=== PATIENT | male | born 1955 | race Caucasian/White ===

== ENCOUNTER 2017-09-19 14:30 | Inpatient (IN) | payer MEDICARE ==
[~2017-09-19] VITALS: Ht 188 cm; Wt 182.8 kg
[~2017-09-19 14:30] MED LIST: AMLODIPINE BESYL5 MG PO; ATORVASTATIN CA80 MG PO; BACTRIM DS1 TAB PO; BUMEX1 M1 PO; BYDUREON2 MG SC; CEFTIN500 MG PO; CEPHALEXIN500 MG PO; CIPRO500 MG OR; CIPRO500 MG PO; CIPROFLOXACN500 MG PO; DIFLUCAN100 MG PO; DILAUDID 2MG2 MG/TA1 PO; EQ ASPIRIN325 MG OR; FERROUS SULF325 M2 PO; FLEXERIL PO; FLOMAX0.4 M1 PO; GLIMEPIRIDE4 MG PO; GLIPIZIDE10 M3 PO; GLIPIZIDE10 MG PO; GLIPIZIDE5 MG PO; HUMALOG PEN SC; HUMULIN R1 M1 SC; HUMULIN R1 ML IJ; IBUPROFEN600 MG PO; INSULIN SYR1 ML/31 G SC; ISOSORB MONO20 MG PO; K-DUR/KLOR-CON20 MEQ PO; KLOR-CON M2020 MEQ PO; LANTUS SC; LASIX 40 MG TAB40 MG OR; LASIX 40 MG TAB40 MG PO; LEVAQUIN500 MG OR; LEVEMIR FL100 UNIT/M SC; LEVEMIR SC; LEVEMIR1000 UNITS SC; LISINOPRIL20 MG OR; LISINOPRIL40 MG PO; LORTAB 5/3255 MG PO; LORTAB5 PO; LOSARTAN POT50 MG PO; LYRICA150 MG OR; LYRICA150 MG PO; LYRICA50 MG PO; MAG OXIDE400 MG PO; MELOXICAM15 MG PO; METFORMIN HCL1000 M1 PO; METFORMIN HCL1000 MG PO; METFORMIN1000 MG PO; METFORMIN500 MG PO; METOLAZONE2.5 MG PO; MYCOLOG CREAM15 GM EX; NITROSTAT0.4 MG SL; NORVASC5 M1 PO; NORVASC5 MG PO; NOVOLIN 70/30 SC; NOVOLIN R1000 UNITS SC; NOVOLIN SC; OMEGA 31000 MG PO; PERCOCET 5/321 COMBO PO; PLAVIX75 MG OR; PLAVIX75 MG PO; PROAIR HFA IN; QVAR40 MCG IN; QVAR80 MCG IN; SERTRALINE50 MG PO; SIMVASTATIN80 MG OR; SIMVASTATIN80 MG PO; TRANDATE200 MG PO; TYLENOL ARTH650 MG OR; ULTRAM50 M1 PO; VICTOZA18 MG/3 ML SC; VITAMIN D50000 UN1 PO; ZESTRIL/PRI20 MG/TAB PO; ZESTRIL20 MG OR; ZETIA10 MG PO; ZITHROMAX250 MG PO
[2017-09-19 16:45] LABS: URINE BILIRUBIN - DIPSTICK NEGATIVE (NEGATIVE); URINE BLOOD DIPSTICK SMALL (NEGATIVE); URINE CLARITY CLEAR; URINE COLOR YELLOW; URINE GLUCOSE - DIPSTICK NEGATIVE (NEGATIVE); URINE KETONE NEGATIVE (NEGATIVE); URINE LEUK ESTERASE NEGATIVE (NEGATIVE); URINE NITRITE - DIPSTICK NEGATIVE (Negative); URINE PROTEIN - DIPSTICK 30 mg/dL (NEG-TRACE); URINE SPECIFIC GRAVITY >=1.030; URINE UROBILINOGEN - DIPSTICK 0.2 E.U./dL (0.2)
[2017-09-19 16:54] LABS: URINE RBC 0-2 RBC/hpf (0-5); URINE SQUAMOUS EPITHELIAL CELL FEW EPI/hpf (0-FEW)
[2017-09-19 17:20] LABS: HEMATOCRIT 25.8 % (39.0-50.0); HEMOGLOBIN 7.9 g/dl (14.0-18.0); IMMATURE GRANULOCYTES 0.4 % (0.0-1.0); MEAN CELL VOLUME 86.3 fL CALC (80.0-100.0); MEAN CORPUSCULAR HGB 26.4 pG CALC (26.0-32.0); MEAN CORPUSCULAR HGB CONC 30.6 g/L CALC (32.0-36.0); NEUT# 3.85 thou/uL (1.82-7.42); RED BLOOD COUNT 2.99 mill/uL (4.70-6.10); RED CELL DISTRI WIDTH 18.2 % (11.5-15.5)
[2017-09-19 17:39] LABS: INTERNATIONAL NORMALIZED RATIO 1.2 RATIO (0.7-1.3); PROTHROMBIN TIME 13.4 SECONDS (9.0-12.5)
[2017-09-19 17:41] LABS: ALBUMIN 4.3 g/dL (3.2-5.0); BILIRUBIN, TOTAL 0.8 mg/dL (0.0-1.4); CALCIUM 9.3 mg/dL (8.4-10.2); CREATININE 1.9 mg/dL (0.7-1.3); TOTAL PROTEIN 7.5 g/dL (6.3-8.2)
[2017-09-19 18:12] LABS: TSH, 3RD GENERATION 1.96 uIU/mL (0.47 - 4.68)
[2017-09-20] VITALS (7 sets, daily range): BP systolic 120–153; BP diastolic 53–88
[2017-09-20 06:25] LABS: CALCIUM 9.3 mg/dL (8.4-10.2); CREATININE 1.7 mg/dL (0.7-1.3); MAGNESIUM 1.4 mg/dL (1.6-2.3); POTASSIUM 4.1 mmol/l (3.5-5.1)
[2017-09-20 07:35] LABS: HEMATOCRIT 25.2 % (39.0-50.0); HEMOGLOBIN 7.7 g/dl (14.0-18.0); MEAN CELL VOLUME 85.4 fL CALC (80.0-100.0); MEAN CORPUSCULAR HGB 26.1 pG CALC (26.0-32.0); MEAN CORPUSCULAR HGB CONC 30.6 g/L CALC (32.0-36.0); RED BLOOD COUNT 2.95 mill/uL (4.70-6.10)
[2017-09-20] MEDS ORDERED: ELIQUIS5 MG PO (14:09)
[2017-09-20] MEDS ORDERED: VENTOLIN HFA IN (16:33)
[2017-09-20] MEDS ORDERED: VITAMIN D32000 UNIT PO (16:38)
[2017-09-20] MEDS ORDERED: LANOXIN0.125 MG PO (16:39)
[2017-09-20] MEDS ORDERED: KLOR-CON M2020 MEQ PO (16:39)
[2017-09-20] MEDS ORDERED: MELOXICAM15 MG PO (16:40)
[2017-09-20] MEDS ORDERED: TIZANIDINE4 MG PO (16:40)
[2017-09-20] MEDS ORDERED: METOLAZONE2.5 MG PO (16:41)
[2017-09-20] MEDS ORDERED: BUMETANIDE1 MG PO (16:41)
[2017-09-20] MEDS ORDERED: LABETALOL100 MG PO (16:42)
[2017-09-20] MEDS ORDERED: ISOSORB MONO30 MG PO (16:42)
[2017-09-21 00:20] VITALS: BP 127/79
[2017-09-21 03:50] VITALS: BP 106/54
[2017-09-21 06:04] LABS: HEMATOCRIT 23.9 % (39.0-50.0); HEMOGLOBIN 7.3 g/dl (14.0-18.0); IMMATURE GRANULOCYTES 0.4 % (0.0-1.0); MEAN CELL VOLUME 85.7 fL CALC (80.0-100.0); MEAN CORPUSCULAR HGB 26.2 pG CALC (26.0-32.0); MEAN CORPUSCULAR HGB CONC 30.5 g/L CALC (32.0-36.0); NEUT# 3.35 thou/uL (1.82-7.42); RED BLOOD COUNT 2.79 mill/uL (4.70-6.10); RED CELL DISTRI WIDTH 17.9 % (11.5-15.5)
[2017-09-21 06:17] LABS: CALCIUM 9.3 mg/dL (8.4-10.2); CREATININE 1.5 mg/dL (0.7-1.3); MAGNESIUM 1.6 mg/dL (1.6-2.3); POTASSIUM 3.8 mmol/l (3.5-5.1)
[2017-09-21 08:30] VITALS: BP 160/50
[2017-09-21 15:45] VITALS: BP 115/68
[2017-09-21 18:24] LABS: URINE BILIRUBIN - DIPSTICK NEGATIVE (NEGATIVE); URINE BLOOD DIPSTICK NEGATIVE (NEGATIVE); URINE CLARITY CLEAR; URINE COLOR YELLOW; URINE GLUCOSE - DIPSTICK NEGATIVE (NEGATIVE); URINE KETONE NEGATIVE (NEGATIVE); URINE LEUK ESTERASE NEGATIVE (Negative); URINE NITRITE - DIPSTICK NEGATIVE (Negative); URINE PROTEIN - DIPSTICK NEGATIVE (NEG-TRACE); URINE SPECIFIC GRAVITY 1.015; URINE UROBILINOGEN - DIPSTICK 0.2 E.U./dL (0.2)
[2017-09-21 19:55] VITALS: BP 127/84; BP 89/56
[2017-09-22] VITALS (8 sets, daily range): BP systolic 95–137; BP diastolic 50–82
[2017-09-22 05:26] LABS: HEMATOCRIT 25.2 % (39.0-50.0); HEMOGLOBIN 7.7 g/dl (14.0-18.0); MEAN CELL VOLUME 86.6 fL CALC (80.0-100.0); MEAN CORPUSCULAR HGB 26.5 pG CALC (26.0-32.0); MEAN CORPUSCULAR HGB CONC 30.6 g/L CALC (32.0-36.0); RED BLOOD COUNT 2.91 mill/uL (4.70-6.10)
[2017-09-22 05:38] LABS: CALCIUM 9.6 mg/dL (8.4-10.2); CREATININE 1.5 mg/dL (0.7-1.3); MAGNESIUM 1.5 mg/dL (1.6-2.3); POTASSIUM 3.7 mmol/l (3.5-5.1)
[2017-09-23 00:25] VITALS: BP 129/61
[2017-09-23 04:55] VITALS: BP 114/71
[2017-09-23 05:54] LABS: ANION GAP 15 (6-22 (CALC)); BUN 38 mg/dL (9-20); BUN/CREATININE RATIO 27 (12-20 (CALC)); CALCIUM 9.4 mg/dL (8.4-10.2); CARBON DIOXIDE 32 mmol/l (22-30); CHLORIDE 100 mmol/l (95-108); CREATININE 1.4 mg/dL (0.7-1.3); GFR 52 ML/MIN (>=60 (CALC)); GFR FOR AFR.AMER. > 60 ML/MIN (>=60 (CALC)); GLUCOSE 114 mg/dL (75-110); MAGNESIUM 1.5 mg/dL (1.6-2.3); POTASSIUM 3.7 mmol/l (3.5-5.1); SODIUM 143 mmol/l (137-146)
[2017-09-23 05:55] LABS: HEMATOCRIT 25.3 % (39.0-50.0); HEMOGLOBIN 7.7 g/dl (14.0-18.0); MEAN CELL VOLUME 86.9 fL CALC (80.0-100.0); MEAN CORPUSCULAR HGB 26.5 pG CALC (26.0-32.0); MEAN CORPUSCULAR HGB CONC 30.4 g/L CALC (32.0-36.0); RED BLOOD COUNT 2.91 mill/uL (4.70-6.10); RED CELL DISTRI WIDTH 18.1 % (11.5-15.5)
[2017-09-23 07:30] VITALS: BP 110/57
[2017-09-23 10:20] VITALS: BP 113/54
[2017-09-23 16:33] VITALS: BP 136/77
[2017-09-23 18:00] VITALS: BP 140/86
[2017-09-24 00:01] VITALS: BP 107/57
[2017-09-24 06:16] LABS: ANION GAP 17 (6-22 (CALC)); BUN 35 mg/dL (9-20); BUN/CREATININE RATIO 28 (12-20 (CALC)); CALCIUM 9.8 mg/dL (8.4-10.2); CARBON DIOXIDE 32 mmol/l (22-30); CHLORIDE 96 mmol/l (95-108); CREATININE 1.3 mg/dL (0.7-1.3); GFR 56 ML/MIN (>=60 (CALC)); GFR FOR AFR.AMER. > 60 ML/MIN (>=60 (CALC)); GLUCOSE 116 mg/dL (75-110); MAGNESIUM 1.3 mg/dL (1.6-2.3); POTASSIUM 3.8 mmol/l (3.5-5.1); SODIUM 142 mmol/l (137-146)
[2017-09-24 06:28] VITALS: BP 123/77
[2017-09-24 08:00] VITALS: BP 147/80
[2017-09-24 11:00] VITALS: BP 125/59
[2017-09-24] MEDS ORDERED: ASPIRIN CHEWABL81 MG PO (14:07)
[2017-09-24] MEDS ORDERED: LOPRESSOR25 MG PO (14:07)
[2017-09-24] MEDS ORDERED: TRAMADOL HCL50 MG PO (14:07)
[2017-09-24] MEDS ORDERED: BUMETANIDE1 MG PO (14:07)
[2017-09-24] MEDS ORDERED: LYRICA150 MG PO (14:08)
== END 2017-09-24 16:02 | DRG 291 ==
LOC: ED 14:30 → ED-I 15:56 → ED 19:22 → MS2 19:23
PROVIDERS: Emergency Medicine; Internal Medicine; Nurse Practitioner Family; ADMIT Internal Medicine; ATTEND Internal Medicine
PROC: 5A09357 Assistance with Respiratory Ventilation, Less than 24 Consecutive Hours, Continuous Positive Airway Pressure (ICD-10-PCS; principal; 2017-09-21)
DX: I13.0 Hypertensive heart and chronic kidney disease with heart failure and stage 1 through stage 4 chronic kidney disease, or unspecified chronic kidney disease (principal); I50.23 Acute on chronic systolic (congestive) heart failure; E11.22 Type 2 diabetes mellitus with diabetic chronic kidney disease; E11.40 Type 2 diabetes mellitus with diabetic neuropathy, unspecified; N17.9 Acute kidney failure, unspecified; N18.3 Chronic kidney disease, stage 3 (moderate); Z68.43 Body mass index [BMI] 50.0-59.9, adult; E11.69 Type 2 diabetes mellitus with other specified complication; E78.5 Hyperlipidemia, unspecified; I48.2 Chronic atrial fibrillation; M19.90 Unspecified osteoarthritis, unspecified site; J45.909 Unspecified asthma, uncomplicated; I25.10 Atherosclerotic heart disease of native coronary artery without angina pectoris; D50.9 Iron deficiency anemia, unspecified; D63.1 Anemia in chronic kidney disease; K21.9 Gastro-esophageal reflux disease without esophagitis; R31.9 Hematuria, unspecified; G47.33 Obstructive sleep apnea (adult) (pediatric); E83.42 Hypomagnesemia; E66.01 Morbid (severe) obesity due to excess calories; Z79.01 Long term (current) use of anticoagulants; Z86.73 Personal history of transient ischemic attack (TIA), and cerebral infarction without residual deficits; Z98.84 Bariatric surgery status; Z79.4 Long term (current) use of insulin; Z86.718 Personal history of other venous thrombosis and embolism; Z86.711 Personal history of pulmonary embolism
CPT/HCPCS: J1756; J3475

== ENCOUNTER → 2019-01-29 | Outpatient (REF) | payer MEDICARE, MEDICAID ==
[~2019-01-29] MED LIST changes: +ASPIRIN CHEWABL81 MG PO; +BUMETANIDE1 MG PO; +ELIQUIS5 MG PO; +ISOSORB MONO30 MG PO; +LABETALOL100 MG PO; +LANOXIN0.125 MG PO; +LOPRESSOR25 MG PO; +TIZANIDINE4 MG PO; +TRAMADOL HCL50 MG PO; +VENTOLIN HFA IN; +VITAMIN D32000 UNIT PO
[2019-01-29 12:12] LABS: URINE BILIRUBIN - DIPSTICK NEGATIVE (NEGATIVE); URINE BLOOD DIPSTICK TRACE-INTACT (NEGATIVE); URINE COLOR YELLOW; URINE GLUCOSE - DIPSTICK NEGATIVE (NEGATIVE); URINE KETONE NEGATIVE (NEGATIVE); URINE LEUK ESTERASE NEGATIVE (Negative); URINE NITRITE - DIPSTICK NEGATIVE (Negative); URINE PH 5.5 (4.5-8.0); URINE PROTEIN - DIPSTICK NEGATIVE (NEG-TRACE); URINE SPECIFIC GRAVITY >=1.030; URINE UROBILINOGEN - DIPSTICK 0.2 E.U./dL (0.2)
[2019-01-29 12:16] LABS: URINE CLARITY CLEAR
[2019-01-29 12:24] LABS: HEMATOCRIT 34.8 % (39.0-50.0); IMMATURE GRANULOCYTES 1.5 % (0.0-5.0); MEAN CELL VOLUME 85.1 fL CALC (80.0-100.0); MEAN CORPUSCULAR HGB 26.9 pG CALC (26.0-32.0); MEAN CORPUSCULAR HGB CONC 31.6 g/L CALC (32.0-36.0); NEUT# 3.48 thou/uL (1.82-7.42); RED BLOOD COUNT 4.09 mill/uL (4.70-6.10); RED CELL DISTRI WIDTH 15.5 % (11.5-15.5)
[2019-01-29 12:51] LABS: ALKALINE PHOSPHATASE 95 u/l (38-126); BILIRUBIN, TOTAL 0.5 mg/dL (0.0-1.4); BUN 18 mg/dL (8-23); BUN/CREATININE RATIO 16 (12-20 (CALC)); CARBON DIOXIDE 24 mmol/l (22-30); CHLORIDE 105 mmol/l (95-108); CHOLESTEROL HDL RATIO 2.1 (<4.4 (CALC)); CREATININE 1.2 mg/dL (0.7-1.3); GFR > 60 ML/MIN (>=60 (CALC)); GFR FOR AFR.AMER. > 60 ML/MIN (>=60 (CALC)); HDL CHOLESTEROL 29 mg/dL (>=40); POTASSIUM 4.3 mmol/l (3.5-5.1); SGOT/AST 26 u/l (19-48); TOTAL PROTEIN 7.1 g/dL (6.3-8.2); TOTAL TRIGLYCERIDES 124 mg/dl (30-149); VLDL CHOLESTROL 25 mg/dl (4-45 (CALC))
[2019-01-29 12:53] LABS: ANION GAP 17 (6-22 (CALC)); CALCULATED LDLCHOLESTEROL 7 mg/dL (62-129 (CALC)); SODIUM 142 mmol/l (137-146); TOTAL CHOLESTEROL 61 mg/dl (0-199)
== END | disposition home or self-care (01) ==
LOC: LAB 10:31
PROVIDERS: ATTEND Nurse Practitioner
DX: E11.9 Type 2 diabetes mellitus without complications (principal); I10 Essential (primary) hypertension; R10.11 Right upper quadrant pain

== ENCOUNTER 2019-05-02 14:36 | Inpatient (IN) | payer MEDICARE, OTHER ==
[~2019-05-02] VITALS: Ht 188 cm; Wt 176.2 kg
[2019-05-02] MEDS ORDERED: SPIRONOLACTONE25 MG PO (15:05)
[2019-05-02] MEDS ORDERED: MELOXICAM7.5 MG PO (15:21)
[2019-05-02] MEDS ORDERED: NOVOLOG MIX100 U/ML SC (15:22)
[2019-05-02] MEDS ORDERED: TRESIBA FL200 UNIT/M (15:23)
[2019-05-02] MEDS ORDERED: METOPROL TAR25 MG PO (15:24)
[2019-05-02] MEDS ORDERED: VENTOLIN HFA IN (15:25)
[2019-05-02] MEDS ORDERED: VITAMIN D32000 UNI1 PO (15:27)
[2019-05-02] MEDS ORDERED: METOLAZONE2.5 MG PO (15:29)
[2019-05-02] MEDS ORDERED: OZEMPIC2 MG/1.51 SC (15:29)
[2019-05-02 15:38] LABS: HEMATOCRIT 32.7 % (39.0-50.0); HEMOGLOBIN 10.6 g/dl (14.0-18.0); IMMATURE GRANULOCYTES 0.9 % (0.0-5.0); MEAN CELL VOLUME 83.4 fL CALC (80.0-100.0); MEAN CORPUSCULAR HGB CONC 32.4 g/L CALC (32.0-36.0); NEUT# 4.01 thou/uL (1.82-7.42); RED BLOOD COUNT 3.92 mill/uL (4.70-6.10); RED CELL DISTRI WIDTH 14.9 % (11.5-15.5)
[2019-05-02 16:00] LABS: ALBUMIN 4.1 g/dL (3.2-5.0); BILIRUBIN, TOTAL 0.6 mg/dL (0.0-1.4); CREATININE 1.5 mg/dL (0.7-1.3); POTASSIUM 4.7 mmol/l (3.5-5.1); TOTAL PROTEIN 7.2 g/dL (6.3-8.2)
[2019-05-02 21:48] VITALS: BP 134/61
[2019-05-02 21:56] LABS: URINE BILIRUBIN - DIPSTICK NEGATIVE (NEGATIVE); URINE BLOOD DIPSTICK LARGE (NEGATIVE); URINE GLUCOSE - DIPSTICK >=1000 mg/dL (NEGATIVE); URINE KETONE NEGATIVE (NEGATIVE); URINE LEUK ESTERASE NEGATIVE (NEGATIVE); URINE NITRITE - DIPSTICK NEGATIVE (Negative); URINE PH 5.5 (4.5-8.0); URINE PROTEIN - DIPSTICK NEGATIVE (NEG-TRACE); URINE SPECIFIC GRAVITY <=1.005; URINE UROBILINOGEN - DIPSTICK 0.2 E.U./dL (0.2)
[2019-05-02 21:57] LABS: URINE COLOR STRAW
[2019-05-03 00:19] VITALS: BP 132/70
[2019-05-03 04:25] VITALS: BP 110/57
[2019-05-03 08:05] VITALS: BP 149/76
[2019-05-03 10:19] VITALS: BP 133/61
[2019-05-03 10:24] LABS: HEMATOCRIT 32.6 % (39.0-50.0); HEMOGLOBIN 10.3 g/dl (14.0-18.0); IMMATURE GRANULOCYTES 0.6 % (0.0-5.0); MEAN CELL VOLUME 84.9 fL CALC (80.0-100.0); MEAN CORPUSCULAR HGB 26.8 pG CALC (26.0-32.0); MEAN CORPUSCULAR HGB CONC 31.6 g/L CALC (32.0-36.0); NEUT# 4.45 thou/uL (1.82-7.42); RED BLOOD COUNT 3.84 mill/uL (4.70-6.10); RED CELL DISTRI WIDTH 14.9 % (11.5-15.5)
[2019-05-03 10:36] LABS: ALBUMIN 3.7 g/dL (3.2-5.0); ALKALINE PHOSPHATASE 78 u/l (38-126); ANION GAP 17 (6-22 (CALC)); BILIRUBIN, TOTAL 0.7 mg/dL (0.0-1.4); BUN 33 mg/dL (8-23); BUN/CREATININE RATIO 26 (12-20 (CALC)); CARBON DIOXIDE 28 mmol/l (22-30); CHLORIDE 96 mmol/l (95-108); CREATININE 1.3 mg/dL (0.7-1.3); GFR 56 ML/MIN (>=60 (CALC)); GFR FOR AFR.AMER. > 60 ML/MIN (>=60 (CALC)); POTASSIUM 4.4 mmol/l (3.5-5.1); SGOT/AST 29 u/l (19-48); SODIUM 136 mmol/l (137-146); TOTAL PROTEIN 6.7 g/dL (6.3-8.2)
[2019-05-03 15:30] VITALS: BP 135/79
[2019-05-03 19:14] VITALS: BP 124/61
[2019-05-04 00:23] VITALS: BP 159/90
[2019-05-04 04:00] VITALS: BP 124/69
[2019-05-04 05:06] LABS: HEMATOCRIT 36.6 % (39.0-50.0); HEMOGLOBIN 11.8 g/dl (14.0-18.0); IMMATURE GRANULOCYTES 0.7 % (0.0-5.0); MEAN CELL VOLUME 83.8 fL CALC (80.0-100.0); MEAN CORPUSCULAR HGB CONC 32.2 g/L CALC (32.0-36.0); NEUT# 7.09 thou/uL (1.82-7.42); RED BLOOD COUNT 4.37 mill/uL (4.70-6.10); RED CELL DISTRI WIDTH 14.7 % (11.5-15.5)
[2019-05-04 05:21] LABS: ANION GAP 20 (6-22 (CALC)); BUN 34 mg/dL (8-23); BUN/CREATININE RATIO 30 (12-20 (CALC)); CARBON DIOXIDE 27 mmol/l (22-30); CHLORIDE 95 mmol/l (95-108); CREATININE 1.1 mg/dL (0.7-1.3); GFR > 60 ML/MIN (>=60 (CALC)); GFR FOR AFR.AMER. > 60 ML/MIN (>=60 (CALC)); POTASSIUM 4.9 mmol/l (3.5-5.1); SODIUM 137 mmol/l (137-146)
[2019-05-04 08:18] VITALS: BP 124/67
[2019-05-04 10:56] VITALS: BP 115/69
[2019-05-04 15:08] VITALS: BP 108/49
[2019-05-04 19:13] VITALS: BP 131/67
[2019-05-05] VITALS (8 sets, daily range): BP systolic 100–131; BP diastolic 42–71
[2019-05-05 04:29] LABS: HEMATOCRIT 35.3 % (39.0-50.0); HEMOGLOBIN 11.5 g/dl (14.0-18.0); IMMATURE GRANULOCYTES 0.3 % (0.0-5.0); MEAN CELL VOLUME 83.8 fL CALC (80.0-100.0); MEAN CORPUSCULAR HGB 27.3 pG CALC (26.0-32.0); MEAN CORPUSCULAR HGB CONC 32.6 g/L CALC (32.0-36.0); NEUT# 4.41 thou/uL (1.82-7.42); RED BLOOD COUNT 4.21 mill/uL (4.70-6.10); RED CELL DISTRI WIDTH 14.8 % (11.5-15.5)
[2019-05-05 04:44] LABS: ANION GAP 16 (6-22 (CALC)); BUN 35 mg/dL (8-23); BUN/CREATININE RATIO 32 (12-20 (CALC)); CARBON DIOXIDE 30 mmol/l (22-30); CHLORIDE 94 mmol/l (95-108); CREATININE 1.1 mg/dL (0.7-1.3); GFR > 60 ML/MIN (>=60 (CALC)); GFR FOR AFR.AMER. > 60 ML/MIN (>=60 (CALC)); POTASSIUM 4.1 mmol/l (3.5-5.1); SODIUM 136 mmol/l (137-146)
[2019-05-05 04:55] LABS: MAGNESIUM 1.5 mg/dL (1.6-2.3)
[2019-05-06 00:15] VITALS: BP 127/80
[2019-05-06 04:15] VITALS: BP 110/64
[2019-05-06 09:07] VITALS: BP 117/65; BP 95/65
[2019-05-06 11:05] VITALS: BP 111/71
[2019-05-06 15:30] VITALS: BP 115/63
[2019-05-06 19:15] VITALS: BP 112/72
[2019-05-07 00:19] VITALS: BP 107/54
[2019-05-07 04:37] VITALS: BP 108/67
[2019-05-07 05:48] LABS: HEMOGLOBIN 11.8 g/dl (14.0-18.0); IMMATURE GRANULOCYTES 0.7 % (0.0-5.0); MEAN CELL VOLUME 83.1 fL CALC (80.0-100.0); MEAN CORPUSCULAR HGB 27.3 pG CALC (26.0-32.0); MEAN CORPUSCULAR HGB CONC 32.8 g/L CALC (32.0-36.0); NEUT# 3.78 thou/uL (1.82-7.42); RED BLOOD COUNT 4.33 mill/uL (4.70-6.10); RED CELL DISTRI WIDTH 14.5 % (11.5-15.5)
[2019-05-07 06:08] LABS: ALBUMIN 3.8 g/dL (3.2-5.0); ALKALINE PHOSPHATASE 98 u/l (38-126); ANION GAP 17 (6-22 (CALC)); BILIRUBIN, TOTAL 0.9 mg/dL (0.0-1.4); BUN 37 mg/dL (8-23); BUN/CREATININE RATIO 28 (12-20 (CALC)); CARBON DIOXIDE 30 mmol/l (22-30); CHLORIDE 91 mmol/l (95-108); CREATININE 1.3 mg/dL (0.7-1.3); GFR 56 ML/MIN (>=60 (CALC)); GFR FOR AFR.AMER. > 60 ML/MIN (>=60 (CALC)); MAGNESIUM 1.4 mg/dL (1.6-2.3); POTASSIUM 4.2 mmol/l (3.5-5.1); SGOT/AST 39 u/l (19-48); SODIUM 134 mmol/l (137-146); TOTAL PROTEIN 6.8 g/dL (6.3-8.2)
[2019-05-07 07:48] VITALS: BP 115/82
[2019-05-07 11:20] VITALS: BP 152/90
== END 2019-05-07 14:48 | disposition home or self-care (01) | DRG 291 ==
LOC: ED 14:36 → ED-I 17:49 → ED 18:09 → MS2 18:10
PROVIDERS: Emergency Medicine; Internal Medicine Nephrology; Nurse Practitioner Family; ADMIT Internal Medicine; ATTEND Internal Medicine
DX: I13.0 Hypertensive heart and chronic kidney disease with heart failure and stage 1 through stage 4 chronic kidney disease, or unspecified chronic kidney disease (principal); I50.23 Acute on chronic systolic (congestive) heart failure; Z68.43 Body mass index [BMI] 50.0-59.9, adult; E11.22 Type 2 diabetes mellitus with diabetic chronic kidney disease; N18.3 Chronic kidney disease, stage 3 (moderate); E11.21 Type 2 diabetes mellitus with diabetic nephropathy; E11.65 Type 2 diabetes mellitus with hyperglycemia; J43.9 Emphysema, unspecified; J20.9 Acute bronchitis, unspecified; I25.10 Atherosclerotic heart disease of native coronary artery without angina pectoris; E66.01 Morbid (severe) obesity due to excess calories; E11.40 Type 2 diabetes mellitus with diabetic neuropathy, unspecified; K21.9 Gastro-esophageal reflux disease without esophagitis; G47.33 Obstructive sleep apnea (adult) (pediatric); D63.1 Anemia in chronic kidney disease; M19.90 Unspecified osteoarthritis, unspecified site; E78.5 Hyperlipidemia, unspecified; I48.2 Chronic atrial fibrillation; I27.20 Pulmonary hypertension, unspecified; I08.1 Rheumatic disorders of both mitral and tricuspid valves; E83.42 Hypomagnesemia; T50.2X5A Adverse effect of carbonic-anhydrase inhibitors, benzothiadiazides and other diuretics, initial encounter; Z79.4 Long term (current) use of insulin; Z91.11 Patient's noncompliance with dietary regimen; Z98.84 Bariatric surgery status; Z86.73 Personal history of transient ischemic attack (TIA), and cerebral infarction without residual deficits
CPT/HCPCS: J3475

== ENCOUNTER 2020-01-28 11:21 | Inpatient (IN) | payer MEDICARE, MEDICAID ==
[~2020-01-28] VITALS: Ht 188 cm; Wt 171.0 kg
[~2020-01-28 11:21] MED LIST changes: +MELOXICAM7.5 MG PO; +METOPROL TAR25 MG PO; +NOVOLOG MIX100 U/ML SC; +OZEMPIC2 MG/1.51 SC; +SPIRONOLACTONE25 MG PO; +TRESIBA FL200 UNIT/M SC; +VITAMIN D32000 UNI1 PO
--- NOTE | 2020-01-28 11:36 | NUR ---
PT RETURNED TO WAITING ROOM VIA WC- AWAITING ROOM AVAIALIBILITY
--- NOTE | 2020-01-28 13:44 | NUR ---
PT TO ROOM VIA WC
[2020-01-28 14:29] LABS: HEMATOCRIT 34.9 % (39.0-50.0); HEMOGLOBIN 11.4 g/dl (14.0-18.0); IMMATURE GRANULOCYTES 0.8 % (0.0-5.0); MEAN CELL VOLUME 85.1 fL CALC (80.0-100.0); MEAN CORPUSCULAR HGB 27.8 pG CALC (26.0-32.0); MEAN CORPUSCULAR HGB CONC 32.7 g/L CALC (32.0-36.0); NEUT# 2.46 thou/uL (1.82-7.42); RED BLOOD COUNT 4.1 mill/uL (4.70-6.10); RED CELL DISTRI WIDTH 15.3 % (11.5-15.5)
--- NOTE | 2020-01-28 14:30 | NUR ---
PT RESTING ON STRETCHER; NO S/S OF DISTRESS NOTED; MONITORING DEVICES IN PLACE; VSS; PT ADVISED OF POC AND CONTINUED WAIT TIME; CALL LIGHT WITHIN REACH; WILL CONTINUE TO MONITOR
[2020-01-28 14:47] LABS: ALBUMIN 3.9 g/dL (3.2-5.0); ALKALINE PHOSPHATASE 176 u/l (38-126); ANION GAP 17 (6-22 (CALC)); BILIRUBIN, TOTAL 0.4 mg/dL (0.0-1.4); BUN 42 mg/dL (8-23); BUN/CREATININE RATIO 29 (12-20 (CALC)); CARBON DIOXIDE 22 mmol/l (22-30); CHLORIDE 98 mmol/l (95-108); CREATININE 1.5 mg/dL (0.7-1.3); GFR 47 ML/MIN (>=60 (CALC)); GFR FOR AFR.AMER. 57 ML/MIN (>=60 (CALC)); POTASSIUM 4.3 mmol/l (3.5-5.1); SGOT/AST 31 u/l (19-48); SODIUM 133 mmol/l (137-146); TOTAL PROTEIN 7.1 g/dL (6.3-8.2)
--- NOTE | 2020-01-28 15:30 | NUR ---
REPORT TO ANNELIESE WARREN
--- NOTE | 2020-01-28 16:30 | NUR ---
PT RESTING ON STRETHER, NO COMPLAINTS STATED AT THIS TIME
--- NOTE | 2020-01-28 17:17 | NUR ---
REPORT CALLED TO CHRISTOPHER- [facility] COY ACCEPTED PT
--- NOTE | 2020-01-28 17:25 | NUR ---
Admission Note Report Given to: WES RN Transported by: Wheelchair X Stretcher Transported with: X Nurse Transporter X Patent IV O2 X Bleacher [employer] Location: ICU X MS2 TRANSPORTED TO [facility] [place] WITHOUT [place]
[2020-01-28 17:32] VITALS: BP 135/72
--- NOTE | 2020-01-28 17:32 | NUR ---
PT ARRIVED TO THE FLOOR VIA STRETCHER ACCOMPANIED BY ED STAFF. PT AMBULATED FROM STRETCHER TO BED. RESPIRATIONS EVEN AND UNLABORED. LUNGS SOUND CLEAR DIMINISHED. PEDAL PULSES STRONG. #20 RAC PATENT AND APPEARS HEALTHY. PT ORIENTED TO ROOM AND CALL ANDRADE SYSTEM. SAFETY PRECAUTIONS IN PLACE. WILL CONTINUE TO MONITOR.
--- NOTE | 2020-01-28 18:33 | NUR ---
LAB CALLED WITH CRITICAL GLUCOSE OF MD Zurdo AWARE.
[2020-01-28 19:07] VITALS: BP 156/87
--- NOTE | 2020-01-28 20:30 | NUR ---
PATIENT RESTING IN BED AT THIS TIME-AWAKE ALERT AND ORIENTEDX3. PATIENT WITH TELE MONITOR IN PLACE. IVF NS PATENT AND INFUSING AT 100CC/HR VIA RIGHT AC SITE. VOIDING QS CLEAR YELLOW URINE. STATES NO FEELING WELL AND THINKS HE MAY HAVE SINUS INFECTION-USES C-PAP AT HS AND STATES THE MASK HASN'T BEEN CLEANED IN A LONG TIME AND IT IS BROKEN. PROBLEM WITH SUPPLIER FOR NEW MASK. STATES NASAL CANGESTION, NON-PRODUCTION COUGH. RECIEVED CALL FROM ELTON IN LAB-LACTIC ACID 2.2 AND [id number]. DR. POZO CALLED. NEXT LATIC AT 0130. NO NEW CHANGES IN INSULIN ORDERS THAT IS ALREADY ORDERED. PATIENT NOTIFIED AND MEDICATED ORDERED,SAFETY PREAUTIONS REINFORCED. CALL LIGHT IN REACH. WILL CONT TO MONITOR.
--- NOTE | 2020-01-28 20:30 | NUR ---
PATIENT RESTING IN BED AT THIS TIME-AWAKE ALERT AND ORIENTEDX3. PATIENT WITH LACTIC ACID 2.2 AND CRITICALLY HIGH ACCU-CHECK. DR. POZO NOTIFIED OF ABNORMAL LABS. ORDERS RECIEVED. IVF PATENT AND INFUSING VIA RIGHT AC SITE AT 100CC/HR ORDERED. TELE MONITOR IN PLACE. VOIDING QS CLEAR YELLOW URINE. PATIENT STATES THAT HE IS NOT FEELING WELL. THINKS THAT HE MAY HAVE SINUS INFECTION-STATES THAT HE USES C-PAP AT NIGHT AND MASK IS BROKEN AND HAS NOT BEEN CLEANED IN SOME TIME.
--- NOTE | 2020-01-28 23:34 | NUR ---
ACCU-CHECK DONE AND READING HIGH-STAT LAB DRAW ORDERED AND AWAITING RESULTS. WILL CONT TO MONITOR.
--- NOTE | 2020-01-29 | NUR ---
RECEIVED CALL FROM PAUL IN LAB-CRITICAL [id number]. POZO NOTIFIED AND NEW ORDER RECIEVED. NOVALOG 15UNITS OF NOVALOG SQ GIVEN. PATIENT CONT TO VOID QS CLEAR YELLOW URINE. IVF PATENT AND INFUSING AT 100CC/HR. TELE MONITOR IN PLACE. CALL LIGHT IN REACH. WILL CONT TO MONITOR.
--- NOTE | 2020-01-29 02:15 | NUR ---
CALL FROM PAUL IN LAB. LACTIC ACID-2.3. WILL REPEAT WITH MORNING LABS. PATIENT APPEARS SLEEPING AT THIS TIME WITH HOME C-PAP IN PLACE. CALL LIGHT IN REACH. WILL CONT TO MARY ELLEN.
[2020-01-29 04:00] VITALS: BP 133/82
--- NOTE | 2020-01-29 04:00 | NUR ---
PATIENT APPEARS SLEEPING AT THIS TIME WITH HOB ELEVATED AND HOME C-PAP IN PLACE. TELE MONITOR IN PLACE. IVF PATENT AND INFUSING VIA RIGHT AC SITE. CALL LIGHT IN REACH, WILL CONT TO MONITOR.
[2020-01-29 05:15] LABS: MEAN CELL VOLUME 83.5 fL CALC (80.0-100.0); MEAN CORPUSCULAR HGB 27.8 pG CALC (26.0-32.0); MEAN CORPUSCULAR HGB CONC 33.3 g/L CALC (32.0-36.0); RED BLOOD COUNT 3.95 mill/uL (4.70-6.10); RED CELL DISTRI WIDTH 14.8 % (11.5-15.5)
[2020-01-29 05:46] LABS: ANION GAP 16 (6-22 (CALC)); BUN 38 mg/dL (8-23); BUN/CREATININE RATIO 31 (12-20 (CALC)); CARBON DIOXIDE 18 mmol/l (22-30); CHLORIDE 102 mmol/l (95-108); CREATININE 1.2 mg/dL (0.7-1.3); GFR > 60 ML/MIN (>=60 (CALC)); GFR FOR AFR.AMER. > 60 ML/MIN (>=60 (CALC)); MAGNESIUM 1.1 mg/dL (1.6-2.3); POTASSIUM 4.5 mmol/l (3.5-5.1); SODIUM 132 mmol/l (137-146)
--- NOTE | 2020-01-29 06:23 | NUR ---
CRITICAL LAB VALUES CALLED BY PAUL IN LAB. LACTIC ACID 2.6, GLUCOSE 416. NEW ORDERED RECIEVED. INCREASE IVF TO 150CC/HR WITH 250CC BOLUS OVER 30MIN. GIVE NOVALOG 15UNITS SQ WHEN PROFILED ON EMAR. WILL CONT TO MONITOR.
--- NOTE | 2020-01-29 07:05 | NUR ---
REPORT RECEIVED FROM ANNELIESE FAYE;PT APPEARS TO BE SLEEPING IN SEMI FOWLERS POSITION;NO S/S OF DISTRESS NOTED;RESPIRATIONS APPEAR EVEN AND UNLABORED ON RA;TELE MONITORING IN PLACE;IV FLUIDS INFUSING WITH EASE PER ORDER;ALL SAFETY PRECAUTIONS IN PLACE WITH BED IN THE LOWEST POSITION AND CALL LIGHT IN REACH;WILL CONTINUE TO MONITOR
--- NOTE | 2020-01-29 09:45 | NUR ---
PT RESTING IN SEMI FOWLERS POSITION,A&O X3;VS OBTAINED AND ASSESSMENT COMPLETED;PT DENIES ANY CURRENT PAIN OR DISCOMFORTS,PAIN SCALE AND REPORTING EDUCATED;RESPIRATIONS EVEN AND UNLABORED ON RA,NON-PRODUCTIVE COUGH NOTED AT TIMES;ABDOMEN DISTENDED/SOFT ON PALPATION AND ACTIVE IN ALL 4 QUADRANTS;WEAK PEDAL PULSES WITH +2 EDEMA NOTED,ENCOURAGED ELEVATION;#20G TO RAC INFUSING NS @ 150ML/HR,SITE APPEARS HEALTHY;SKIN INTACT;TELE MONITORING IN PLACE;PT DENIES ANY ADDITIONAL NEEDS AT THIS TIME AND IS ENCOURAGED TO CALL FOR ASSISTANCE IF NEEDED;CALL LIGHT IN REACH;WILL CONTINUE TO MONITOR
[2020-01-29 09:46] VITALS: BP 141/71
--- NOTE | 2020-01-29 11:44 | NUR ---
AT BEDSIDE DISCUSSING POC.
--- NOTE | 2020-01-29 11:50 | NUR ---
PT RESTING IN SEMI FOWLERS POSITION;RESPIRATIONS REMAIN EVEN AND UNLABORED ON RA;PT DENIES ANY CURRENT PAIN OR DISCOMFORTS;TELE MONITORING IN PLACE;IV SITE PATENT INFUSING MAG WITH EASE PER ORDER;ACCUCHECK 372, PT COVERED WITH SLIDING SCALE NOVOLOG PER ORDER;ASSESSMENT REMAINS UNCHANGED AT THIS TIME;ENCOURAGED TO CALL FOR ASSISTANCE IF NEEDED;CALL LIGHT IN REACH;WILL CONTINUE TO MONITOR
[2020-01-29 12:42] LABS: URINE BILIRUBIN - DIPSTICK NEGATIVE (NEGATIVE); URINE BLOOD DIPSTICK NEGATIVE (NEGATIVE); URINE COLOR YELLOW; URINE GLUCOSE - DIPSTICK >=1000 mg/dL (NEGATIVE); URINE KETONE NEGATIVE (NEGATIVE); URINE LEUK ESTERASE NEGATIVE (NEGATIVE); URINE NITRITE - DIPSTICK NEGATIVE (Negative); URINE PH 5.5 (4.5-8.0); URINE PROTEIN - DIPSTICK NEGATIVE (NEG-TRACE); URINE UROBILINOGEN - DIPSTICK 0.2 E.U./dL (0.2)
[2020-01-29] MEDS ORDERED: METOLAZONE5 MG PO (13:06)
--- NOTE | 2020-01-29 13:52 | NUR ---
CALL RECEIVED FROM ER REGARDING PT ELEVATED HR.PT ASYMPTOMATIC AT THIS TIME.BP 116/69, HR 75;WILL CONTINUE TO MONITOR
[2020-01-29 13:53] VITALS: BP 116/69
[2020-01-29 15:26] VITALS: BP 142/83
--- NOTE | 2020-01-29 15:50 | NUR ---
PT RESTING IN SEMI FOWLERS POSITION;RESPIRATIONS EVEN AND UNLABORED ON RA;PT DENIES ANY CURRENT PAIN OR NEEDS;TELE MONITORING IN PLACE;IV SITE PATENT;PT ENCOURAGED TO CALL FOR ASSISTANCE IF NEEDED;FALL PRECAUTIONS IN PLACE WITH ILIR LIGHT IN REACH;WILL CONTINUE TO MONITOR
--- NOTE | 2020-01-29 16:20 | NUR ---
BLADDER SCAN OBTAINED FOR POST VOID RESIDUAL RESULTING IN 74CC.
--- NOTE | 2020-01-29 19:03 | NUR ---
REPORT RECEIVED FROM RAYNE VILLA. PT RESTING IN BED. NO S/S OF DISTRESS AT THIS TIME. SAFETY PRECAUTIONS IN [place]. WILL CONTINEU TO MONITOR.
[2020-01-29 19:05] VITALS: BP 136/65
--- NOTE | 2020-01-29 21:30 | NUR ---
PT RESTING IN BED, ALERT AND ORIENTED. RESPIRATIONS EVEN AND UNLABORED ON RA. LUNGS SOUND CLEAR DIMINISHED. PEDAL PULSE STRONG. PT DENIES ANY PAIN OR DISCOMFORT AT THIS TIME. SAFETY PRECAUTIONS IN PLACE. WILL CONTINUE TO MONITOR.
[2020-01-30] VITALS (7 sets, daily range): BP systolic 98–151; BP diastolic 53–81
--- NOTE | 2020-01-30 00:23 | NUR ---
PT RESTING IN BED RESPIRATIONS EVEN AND UNLABORED CPAP IN PLACE. CALL ANDRADE WITHIN REACH WILL CONTINUE TO MONITOR.
--- NOTE | 2020-01-30 04:12 | NUR ---
PT RESTING IN BED. NO S/S OF DISTRESS AT THIS TIME. WILL CONTINUE TO MONITOR.
[2020-01-30 05:22] LABS: HEMATOCRIT 36.5 % (39.0-50.0); MEAN CELL VOLUME 85.3 fL CALC (80.0-100.0); MEAN CORPUSCULAR HGB CONC 32.9 g/L CALC (32.0-36.0); RED BLOOD COUNT 4.28 mill/uL (4.70-6.10); RED CELL DISTRI WIDTH 15.4 % (11.5-15.5)
[2020-01-30 05:43] LABS: BUN 35 mg/dL (8-23); BUN/CREATININE RATIO 31 (12-20 (CALC)); CHLORIDE 99 mmol/l (95-108); CREATININE 1.1 mg/dL (0.7-1.3); GFR > 60 ML/MIN (>=60 (CALC)); GFR FOR AFR.AMER. > 60 ML/MIN (>=60 (CALC)); POTASSIUM 4.2 mmol/l (3.5-5.1); SODIUM 135 mmol/l (137-146)
[2020-01-30 05:45] LABS: ANION GAP 15 (6-22 (CALC)); CARBON DIOXIDE 25 mmol/l (22-30); MAGNESIUM 1.7 mg/dL (1.6-2.3)
--- NOTE | 2020-01-30 07:30 | NUR ---
REPORT RECEIVED FROM ANNELIESE HARVEY. PT SLEEPING AT THIS TIME. CPAP IN PLACE. CALL LIGHT WITHIN REACH.
--- NOTE | 2020-01-30 12:30 | NUR ---
DR. YOUNG IN TO SEE PT. PLAN OF CARE UPDATED.
--- NOTE | 2020-01-30 13:37 | NUR ---
PT LEFT FLOOR VIA WC ACCOMPANIED BY ANI ROBINS TO X-RAY.
--- NOTE | 2020-01-30 16:24 | NUR ---
PT SITTING IN CHAIR AT BEDSIDE. DENIES PAIN. REPORTS IMPROVEMENT IN BREATHING SINCE NEB TX.
--- NOTE | 2020-01-30 19:02 | NUR ---
REPORT RECEIVED FROM ANNELIESE BARAJAS. PT RESTING IN BED. NO S/S OF DISTRESS AT THIS TIME. WILL CONTINUE TO MONITOR.
--- NOTE | 2020-01-30 20:15 | NUR ---
PT RESTING IN BED ALERT AND ORIENTED. RESPIRATIONS EVEN AND UNLABORED ON RA. LUNGS SOUND CLEAR DIMINISHED. PEDAL PULSES STRON. PT DENIES ANY PAIN OR DISCOMFORT AT THIS TIME. SAFETY PRECAUTIONS IN PLACE. WILL CONTINUE TO MONITOR.
--- NOTE | 2020-01-31 00:47 | NUR ---
PT RESTING IN BED ALERT AND ORIENTED EATING ICE CHIPS. PT DENIES ANY PAIN OR DISCOMFORT AT THIS TIME. SAFETY PRECAUTIONS IN PLACE. WILL CONTINUE TO MONITOR.
--- NOTE | 2020-01-31 03:55 | NUR ---
PT REST IN BED FREE FROM DISTRESS, SAFETY PRECAUTIONS IN PLACE, WILL CONTINUE TO MONITOR.
[2020-01-31 03:58] VITALS: BP 121/65
[2020-01-31 07:37] VITALS: BP 156/70
--- NOTE | 2020-01-31 07:50 | NUR ---
0750-Pt sitting up in bed, alert and awake. No s/s of distress. Denies pain. Pt complaints of dietary not listening to him wanting more fish and no banana pudding for dinner, will monitor this request during my shift. Bed low and locked. Call light and phone within reach. Pt stable, will continue to monitor.
[2020-01-31 11:00] VITALS: BP 137/84
--- NOTE | 2020-01-31 14:00 | NUR ---
1400-Pt lying in bed with eyes closed. Denies pain, no s/s of distress. Bed low and locked call light and phone within reach. Waiting on pt to have bowel movement for specimen. Pt stable. Will continue to monitor.
[2020-01-31 15:44] VITALS: BP 141/83
--- NOTE | 2020-01-31 17:00 | NUR ---
1700-Pt blood glucose 479, [address] Paniagua notified, message left. 1730- Dr. Paniagua called back and place telephone verbal orders to given an additional 5 units now for blood sugar of 479. Read back and verified order. Order faxed to [place]. Placed in pt file.
--- NOTE | 2020-01-31 17:55 | NUR ---
1755-Pt sitting in high fowlers. Denies pain. Pleasant. No s/s of distress. Bed low and locked, call light and phone within reach. Pt stable. Will continue to monitor.
[2020-01-31 18:38] VITALS: BP 121/63
--- NOTE | 2020-01-31 20:51 | NUR ---
ACCU CR-HI NOTIFY THE NURSE
--- NOTE | 2020-01-31 22:05 | NUR ---
PATIENT RESTING IN BED-RECIEVED CALL FROM ELTON IN LAB WITH CRITICAL [id number]. YOUNG NOTIFIED. MEDICATED ORDERED. CALL LIGHT IN REACH WILL CONT TO MONITOR,
[2020-01-31 23:35] VITALS: BP 122/75
--- NOTE | 2020-02-01 00:28 | NUR ---
PATIENT SITTING UP ON THE SIDE OF THE BED-AWAKE ALERT AND ORIENTEDX3. ZOSYN HUNG AND INFUSING VIA RIGHT AC SITE. SITE APPEARS HEALTHY AT THIS TIME. CALL LIGHT IN REACH. WILL CONT TO MONITOR.
--- NOTE | 2020-02-01 01:12 | NUR ---
CHECK ERICK CHEK AT 0101 CR-HI I NOTIFY NURSE
[2020-02-01 03:47] VITALS: BP 124/68
[2020-02-01 07:39] VITALS: BP 144/75
--- NOTE | 2020-02-01 07:39 | NUR ---
PT SLEEPING IN BED WITH HOME CPAP MACHINE IN PLACE. AWAKENED TO COMPLETE ASSESSMENT. A&O X3. NO DISTRESS NOTED. PT VOICES CONCERN ABOUT HIS HIGH SUGAR LEVELS, EXPLAINED TO THE PT THAT SOLUMEDROL COULD ALTER HIS LEVELS AND THAT IT SHOULD BE CONTROLLED ONCE HE IS TAPERED OFF OF IT. PT VERBALIZED UNDERSTANDING. NO OTHER NEEDS AT THIS TIME. ASSESSMENT COMPLETED. DISCUSSED POC. CALL LIGHT IN REACH. CONTINUE TO MONITOR.
[2020-02-01 12:04] VITALS: BP 130/70
[2020-02-01] MEDS ORDERED: Levaquin PO (12:46)
--- NOTE | 2020-02-01 14:00 | NUR ---
D/C INSTRUCTIONS GIVEN TO PT, PT VERBALIZES UNDERSTANDING. IV REMOVED, INTACT UPON REMOVAL
--- NOTE | 2020-02-01 14:27 | NUR ---
Discharge instructions given. Patient verbalizes understanding of same. Discharged in stable condition via wheelchair to home with home health accompanied by staff. All belongings sent with pt.
== END 2020-02-01 14:27 | disposition home health service (06) | DRG 291 ==
LOC: ED 11:21 → ED-I 16:00 → ED 16:20 → MS2 16:21
PROVIDERS: Family Medicine; Nurse Practitioner Family; ADMIT Internal Medicine; ATTEND Internal Medicine
DX: I13.0 Hypertensive heart and chronic kidney disease with heart failure and stage 1 through stage 4 chronic kidney disease, or unspecified chronic kidney disease (principal); I50.23 Acute on chronic systolic (congestive) heart failure; Z68.43 Body mass index [BMI] 50.0-59.9, adult; J44.0 Chronic obstructive pulmonary disease with (acute) lower respiratory infection; J20.9 Acute bronchitis, unspecified; E11.22 Type 2 diabetes mellitus with diabetic chronic kidney disease; N18.3 Chronic kidney disease, stage 3 (moderate); E11.40 Type 2 diabetes mellitus with diabetic neuropathy, unspecified; E83.42 Hypomagnesemia; G47.33 Obstructive sleep apnea (adult) (pediatric); E78.5 Hyperlipidemia, unspecified; E11.65 Type 2 diabetes mellitus with hyperglycemia; I48.91 Unspecified atrial fibrillation; I25.10 Atherosclerotic heart disease of native coronary artery without angina pectoris; E66.01 Morbid (severe) obesity due to excess calories; Z86.73 Personal history of transient ischemic attack (TIA), and cerebral infarction without residual deficits; Z79.4 Long term (current) use of insulin
CPT/HCPCS: G0378; J1650; J3475

== ENCOUNTER 2020-02-09 14:10 | Inpatient (IN) | payer MEDICARE ==
[~2020-02-09] VITALS: Ht 188 cm; Wt 164.7 kg
[~2020-02-09 14:10] MED LIST changes: +Levaquin PO; +METOLAZONE5 MG PO
[2020-02-09 16:20] LABS: HEMATOCRIT 34.5 % (39.0-50.0); HEMOGLOBIN 11.7 g/dl (14.0-18.0); MEAN CELL VOLUME 81.2 fL CALC (80.0-100.0); MEAN CORPUSCULAR HGB 27.5 pG CALC (26.0-32.0); MEAN CORPUSCULAR HGB CONC 33.9 g/dL CAL (32.0-36.0); RED BLOOD COUNT 4.25 mill/uL (4.70-6.10); RED CELL DISTRI WIDTH 14.4 % (11.5-15.5)
[2020-02-09 16:23] VITALS: BP 116/66
[2020-02-09 17:24] LABS: ALBUMIN 3.3 g/dL (3.2-5.0); ALKALINE PHOSPHATASE 115 u/l (38-126); BUN 35 mg/dL (8-23); BUN/CREATININE RATIO 32 (12-20 (CALC)); CARBON DIOXIDE 27 mmol/l (22-30); CHLORIDE 89 mmol/l (95-108); CREATININE 1.1 mg/dL (0.7-1.3); GFR > 60 ML/MIN (>=60 (CALC)); GFR FOR AFR.AMER. > 60 ML/MIN (>=60 (CALC)); MAGNESIUM 1.3 mg/dL (1.6-2.3); POTASSIUM 4.5 mmol/l (3.5-5.1); SGOT/AST 34 u/l (19-48); TOTAL PROTEIN 6.7 g/dL (6.3-8.2)
[2020-02-09 17:42] LABS: ANION GAP 17 (6-22 (CALC)); BILIRUBIN, TOTAL 0.8 mg/dL (0.0-1.4); C-REACTIVE PROTEIN 17.7 mg/dL (0-0.9); SODIUM 128 mmol/l (137-146)
[2020-02-09 21:00] VITALS: BP 127/72
[2020-02-09 23:14] LABS: URINE BILIRUBIN - DIPSTICK NEGATIVE (NEGATIVE); URINE BLOOD DIPSTICK TRACE-INTACT (NEGATIVE); URINE CLARITY CLEAR; URINE COLOR YELLOW; URINE GLUCOSE - DIPSTICK 250 mg/dL (NEGATIVE); URINE KETONE NEGATIVE (NEGATIVE); URINE NITRITE - DIPSTICK NEGATIVE (Negative); URINE PH 5.5 (4.5-8.0); URINE PROTEIN - DIPSTICK TRACE mg/dL (NEG-TRACE); URINE UROBILINOGEN - DIPSTICK 0.2 E.U./dL (0.2)
[2020-02-09 23:33] LABS: URINE LEUK ESTERASE NEGATIVE (Negative)
[2020-02-10 01:00] VITALS: BP 132/80
[2020-02-10 09:02] VITALS: BP 144/63
[2020-02-10 09:52] LABS: HEMATOCRIT 35.9 % (39.0-50.0); MEAN CORPUSCULAR HGB 27.1 pG CALC (26.0-32.0); MEAN CORPUSCULAR HGB CONC 33.4 g/dL CAL (32.0-36.0); RED BLOOD COUNT 4.43 mill/uL (4.70-6.10); RED CELL DISTRI WIDTH 14.3 % (11.5-15.5)
[2020-02-10 10:25] LABS: ANION GAP 14 (6-22 (CALC)); BUN 26 mg/dL (8-23); BUN/CREATININE RATIO 26 (12-20 (CALC)); CARBON DIOXIDE 30 mmol/l (22-30); CHLORIDE 91 mmol/l (95-108); GFR > 60 ML/MIN (>=60 (CALC)); GFR FOR AFR.AMER. > 60 ML/MIN (>=60 (CALC)); MAGNESIUM 1.3 mg/dL (1.6-2.3); POTASSIUM 4.4 mmol/l (3.5-5.1); SODIUM 130 mmol/l (137-146)
[2020-02-10 12:00] VITALS: BP 112/51
[2020-02-10 16:00] VITALS: BP 105/62
[2020-02-10 19:08] VITALS: BP 119/68
[2020-02-10 23:58] VITALS: BP 124/63
[2020-02-11 03:31] VITALS: BP 93/57
[2020-02-11 08:27] VITALS: BP 141/87
[2020-02-11 10:31] LABS: HEMATOCRIT 35.4 % (39.0-50.0); HEMOGLOBIN 11.6 g/dl (14.0-18.0); MEAN CELL VOLUME 83.7 fL CALC (80.0-100.0); MEAN CORPUSCULAR HGB 27.4 pG CALC (26.0-32.0); MEAN CORPUSCULAR HGB CONC 32.8 g/dL CAL (32.0-36.0); RED BLOOD COUNT 4.23 mill/uL (4.70-6.10); RED CELL DISTRI WIDTH 14.4 % (11.5-15.5)
[2020-02-11 11:40] LABS: CREATININE 1.5 mg/dL (0.7-1.3); MAGNESIUM 1.6 mg/dL (1.6-2.3); POTASSIUM 3.7 mmol/l (3.5-5.1)
[2020-02-11 11:43] VITALS: BP 99/69
[2020-02-11 15:22] VITALS: BP 112/62
[2020-02-11 19:46] VITALS: BP 90/49
[2020-02-11 23:44] VITALS: BP 97/68
[2020-02-12] VITALS (17 sets, daily range): BP systolic 80–137; BP diastolic 56–90
[2020-02-12 05:44] LABS: HEMATOCRIT 33.9 % (39.0-50.0); HEMOGLOBIN 11.2 g/dl (14.0-18.0); MEAN CELL VOLUME 82.9 fL CALC (80.0-100.0); MEAN CORPUSCULAR HGB 27.4 pG CALC (26.0-32.0); RED BLOOD COUNT 4.09 mill/uL (4.70-6.10); RED CELL DISTRI WIDTH 14.2 % (11.5-15.5)
[2020-02-12 06:01] LABS: CREATININE 1.7 mg/dL (0.7-1.3)
[2020-02-12 06:13] LABS: MAGNESIUM 1.6 mg/dL (1.6-2.3)
[2020-02-12 08:57] LABS: HEMATOCRIT 34.4 % (39.0-50.0); HEMOGLOBIN 11.2 g/dl (14.0-18.0); IMMATURE GRANULOCYTES 0.8 % (0.0-5.0); MEAN CELL VOLUME 83.7 fL CALC (80.0-100.0); MEAN CORPUSCULAR HGB 27.3 pG CALC (26.0-32.0); MEAN CORPUSCULAR HGB CONC 32.6 g/dL CAL (32.0-36.0); NEUT# 7.11 thou/uL (1.82-7.42); RED BLOOD COUNT 4.11 mill/uL (4.70-6.10); RED CELL DISTRI WIDTH 14.6 % (11.5-15.5)
[2020-02-13] VITALS (14 sets, daily range): BP systolic 81–123; BP diastolic 52–74
[2020-02-13 05:12] LABS: HEMATOCRIT 35.1 % (39.0-50.0); HEMOGLOBIN 11.5 g/dl (14.0-18.0); IMMATURE GRANULOCYTES 0.6 % (0.0-5.0); MEAN CELL VOLUME 82.8 fL CALC (80.0-100.0); MEAN CORPUSCULAR HGB 27.1 pG CALC (26.0-32.0); MEAN CORPUSCULAR HGB CONC 32.8 g/dL CAL (32.0-36.0); NEUT# 6.75 thou/uL (1.82-7.42); RED BLOOD COUNT 4.24 mill/uL (4.70-6.10); RED CELL DISTRI WIDTH 14.4 % (11.5-15.5)
[2020-02-13 05:26] LABS: ALKALINE PHOSPHATASE 139 u/l (38-126); ANION GAP 14 (6-22 (CALC)); BILIRUBIN, TOTAL 1.1 mg/dL (0.0-1.4); BUN 35 mg/dL (8-23); BUN/CREATININE RATIO 31 (12-20 (CALC)); CARBON DIOXIDE 33 mmol/l (22-30); CHLORIDE 89 mmol/l (95-108); CREATININE 1.1 mg/dL (0.7-1.3); GFR > 60 ML/MIN (>=60 (CALC)); GFR FOR AFR.AMER. > 60 ML/MIN (>=60 (CALC)); MAGNESIUM 1.6 mg/dL (1.6-2.3); POTASSIUM 4.6 mmol/l (3.5-5.1); SGOT/AST 53 u/l (19-48); SODIUM 132 mmol/l (137-146); TOTAL PROTEIN 6.5 g/dL (6.3-8.2)
[2020-02-14] VITALS (19 sets, daily range): BP systolic 77–147; BP diastolic 49–82
[2020-02-14 06:38] LABS: ALKALINE PHOSPHATASE 144 u/l (38-126); ANION GAP 14 (6-22 (CALC)); BILIRUBIN, TOTAL 0.7 mg/dL (0.0-1.4); BUN 37 mg/dL (8-23); BUN/CREATININE RATIO 29 (12-20 (CALC)); CARBON DIOXIDE 32 mmol/l (22-30); CHLORIDE 88 mmol/l (95-108); CREATININE 1.3 mg/dL (0.7-1.3); GFR 56 ML/MIN (>=60 (CALC)); GFR FOR AFR.AMER. > 60 ML/MIN (>=60 (CALC)); SGOT/AST 44 u/l (19-48); SODIUM 131 mmol/l (137-146); TOTAL PROTEIN 6.6 g/dL (6.3-8.2)
[2020-02-15] VITALS (22 sets, daily range): BP systolic 79–169; BP diastolic 51–100
[2020-02-15 05:22] LABS: ANION GAP 12 (6-22 (CALC)); BUN 39 mg/dL (8-23); BUN/CREATININE RATIO 29 (12-20 (CALC)); CARBON DIOXIDE 35 mmol/l (22-30); CHLORIDE 88 mmol/l (95-108); CREATININE 1.3 mg/dL (0.7-1.3); GFR 56 ML/MIN (>=60 (CALC)); GFR FOR AFR.AMER. > 60 ML/MIN (>=60 (CALC)); POTASSIUM 3.8 mmol/l (3.5-5.1); SODIUM 131 mmol/l (137-146)
[2020-02-15 12:14] LABS: C-REACTIVE PROTEIN > 9.0 mg/dL (0-0.9)
[2020-02-16] VITALS (8 sets, daily range): BP systolic 97–126; BP diastolic 64–84
[2020-02-16 05:04] LABS: HEMATOCRIT 33.3 % (39.0-50.0); HEMOGLOBIN 10.9 g/dl (14.0-18.0); MEAN CELL VOLUME 83.3 fL CALC (80.0-100.0); MEAN CORPUSCULAR HGB 27.3 pG CALC (26.0-32.0); MEAN CORPUSCULAR HGB CONC 32.7 g/dL CAL (32.0-36.0); RED CELL DISTRI WIDTH 14.1 % (11.5-15.5)
[2020-02-16 05:12] LABS: ANION GAP 16 (6-22 (CALC)); BUN 41 mg/dL (8-23); BUN/CREATININE RATIO 33 (12-20 (CALC)); CARBON DIOXIDE 31 mmol/l (22-30); CHLORIDE 88 mmol/l (95-108); CREATININE 1.2 mg/dL (0.7-1.3); GFR > 60 ML/MIN (>=60 (CALC)); GFR FOR AFR.AMER. > 60 ML/MIN (>=60 (CALC)); POTASSIUM 4.1 mmol/l (3.5-5.1); SODIUM 130 mmol/l (137-146)
[2020-02-16] MEDS ORDERED: HYDROXYCHLOR200 M1 PO (10:33)
== END 2020-02-16 12:15 | disposition home or self-care (01) | DRG 194 ==
LOC: MS2 14:10 → ICU 02-12 08:45
PROVIDERS: Nurse Practitioner Family; ADMIT Internal Medicine; ATTEND Internal Medicine
PROC: 5A09357 Assistance with Respiratory Ventilation, Less than 24 Consecutive Hours, Continuous Positive Airway Pressure (ICD-10-PCS; principal; 2020-02-11)
DX: J12.89 Other viral pneumonia (principal); I13.0 Hypertensive heart and chronic kidney disease with heart failure and stage 1 through stage 4 chronic kidney disease, or unspecified chronic kidney disease; E87.1 Hypo-osmolality and hyponatremia; I48.20 Chronic atrial fibrillation, unspecified; I50.22 Chronic systolic (congestive) heart failure; N17.9 Acute kidney failure, unspecified; Z68.42 Body mass index [BMI] 45.0-49.9, adult; B97.29 Other coronavirus as the cause of diseases classified elsewhere; E11.22 Type 2 diabetes mellitus with diabetic chronic kidney disease; N18.3 Chronic kidney disease, stage 3 (moderate); E11.40 Type 2 diabetes mellitus with diabetic neuropathy, unspecified; E83.42 Hypomagnesemia; E78.5 Hyperlipidemia, unspecified; D64.9 Anemia, unspecified; I25.10 Atherosclerotic heart disease of native coronary artery without angina pectoris; E66.01 Morbid (severe) obesity due to excess calories; K21.9 Gastro-esophageal reflux disease without esophagitis; Z79.4 Long term (current) use of insulin; Z86.73 Personal history of transient ischemic attack (TIA), and cerebral infarction without residual deficits; Z98.84 Bariatric surgery status
CPT/HCPCS: J0692; J3475; Q3014

== ENCOUNTER 2020-05-27 07:10 | Day surgery (SDC) | payer MEDICARE, MEDICAID ==
[~2020-05-27] VITALS: Ht 188 cm; Wt 176.9 kg
[~2020-05-27 07:10] MED LIST changes: +HYDROXYCHLOR200 M1 PO
[2020-05-27 11:55] VITALS: BP 100/51
== END 2020-05-27 13:40 | disposition home or self-care (01) ==
LOC: ORM 07:10
PROVIDERS: ATTEND Surgery
PROC: 0JH63WZ Insertion of Totally Implantable Vascular Access Device into Chest Subcutaneous Tissue and Fascia, Percutaneous Approach (ICD-10-PCS; principal; 2020-05-27)
PROC: 02HV33Z Insertion of Infusion Device into Superior Vena Cava, Percutaneous Approach (ICD-10-PCS; 2020-05-27)
PROC: B518ZZA Fluoroscopy of Superior Vena Cava, Guidance (ICD-10-PCS; 2020-05-27)
DX: E83.42 Hypomagnesemia (principal); E66.01 Morbid (severe) obesity due to excess calories; I12.9 Hypertensive chronic kidney disease with stage 1 through stage 4 chronic kidney disease, or unspecified chronic kidney disease; N18.2 Chronic kidney disease, stage 2 (mild); Z86.73 Personal history of transient ischemic attack (TIA), and cerebral infarction without residual deficits; Z98.84 Bariatric surgery status
CPT/HCPCS: J0131; Q9967

== ENCOUNTER 2020-06-20 16:06 | Emergency (ER) | payer MEDICARE, MEDICAID ==
[~2020-06-20] VITALS: Ht 188 cm; Wt 181.0 kg
[2020-06-20 17:21] LABS: HEMATOCRIT 35.5 % (39.0-50.0); HEMOGLOBIN 11.5 g/dl (14.0-18.0); IMMATURE GRANULOCYTES 0.4 % (0.0-5.0); MEAN CELL VOLUME 81.8 fL CALC (80.0-100.0); MEAN CORPUSCULAR HGB 26.5 pG CALC (26.0-32.0); MEAN CORPUSCULAR HGB CONC 32.4 g/dL CAL (32.0-36.0); NEUT# 4.88 thou/uL (1.82-7.42); RED BLOOD COUNT 4.34 mill/uL (4.70-6.10); RED CELL DISTRI WIDTH 15.2 % (11.5-15.5)
[2020-06-20 17:49] LABS: URINE BILIRUBIN - DIPSTICK NEGATIVE (NEGATIVE); URINE BLOOD DIPSTICK MODERATE (NEGATIVE); URINE CLARITY CLEAR; URINE COLOR YELLOW; URINE GLUCOSE - DIPSTICK >=1000 mg/dL (NEGATIVE); URINE KETONE NEGATIVE (NEGATIVE); URINE LEUK ESTERASE NEGATIVE (Negative); URINE NITRITE - DIPSTICK NEGATIVE (Negative); URINE PROTEIN - DIPSTICK NEGATIVE (NEG-TRACE); URINE SPECIFIC GRAVITY 1.015; URINE UROBILINOGEN - DIPSTICK 0.2 E.U./dL (0.2)
[2020-06-20 18:04] LABS: ALBUMIN 4.1 g/dL (3.2-5.0); ALKALINE PHOSPHATASE 196 u/l (38-126); BILIRUBIN, TOTAL 0.6 mg/dL (0.0-1.4); BUN 37 mg/dL (8-23); BUN/CREATININE RATIO 31 (12-20 (CALC)); CHLORIDE 92 mmol/l (95-108); CREATININE 1.2 mg/dL (0.7-1.3); GFR > 60 ML/MIN (>=60 (CALC)); GFR FOR AFR.AMER. > 60 ML/MIN (>=60 (CALC)); POTASSIUM 4.3 mmol/l (3.5-5.1); SGOT/AST 29 u/l (19-48); SODIUM 129 mmol/l (137-146); TOTAL PROTEIN 7.2 g/dL (6.3-8.2)
[2020-06-20 18:06] LABS: URINE SQUAMOUS EPITHELIAL CELL FEW EPI/hpf (0-FEW)
[2020-06-20 18:11] LABS: ANION GAP 16 (6-22 (CALC)); CARBON DIOXIDE 25 mmol/l (22-30)
[2020-06-20 19:15] VITALS: BP 131/65
[2020-06-20] MEDS ORDERED: NOVOLOG100 UNIT/M SC (19:22)
== END 2020-06-20 20:05 | disposition home or self-care (01) ==
LOC: ED 16:06
DX: E11.65 Type 2 diabetes mellitus with hyperglycemia (principal); I10 Essential (primary) hypertension; I25.10 Atherosclerotic heart disease of native coronary artery without angina pectoris; T38.3X6A Underdosing of insulin and oral hypoglycemic [antidiabetic] drugs, initial encounter; Z91.120 Patient's intentional underdosing of medication regimen due to financial hardship; Z79.4 Long term (current) use of insulin; Z98.84 Bariatric surgery status; Z86.73 Personal history of transient ischemic attack (TIA), and cerebral infarction without residual deficits

== ENCOUNTER 2020-07-06 05:27 | Emergency (ER) | payer MEDICARE, MEDICAID ==
[~2020-07-06] VITALS: Ht 188 cm; Wt 181.1 kg
[~2020-07-06 05:27] MED LIST changes: +NOVOLOG100 UNIT/M SC
[2020-07-06 06:36] VITALS: BP 127/70
[2020-07-06 06:41] LABS: HEMATOCRIT 33.7 % (39.0-50.0); HEMOGLOBIN 10.3 g/dl (14.0-18.0); MEAN CELL VOLUME 83.6 fL CALC (80.0-100.0); MEAN CORPUSCULAR HGB 25.6 pG CALC (26.0-32.0); MEAN CORPUSCULAR HGB CONC 30.6 g/dL CAL (32.0-36.0); NEUT# 4.65 thou/uL (1.82-7.42); RED BLOOD COUNT 4.03 mill/uL (4.70-6.10)
[2020-07-06 06:56] LABS: ALKALINE PHOSPHATASE 119 u/l (38-126); ANION GAP 13 (6-22 (CALC)); BILIRUBIN, TOTAL 0.6 mg/dL (0.0-1.4); BUN 31 mg/dL (8-23); BUN/CREATININE RATIO 23 (12-20 (CALC)); CARBON DIOXIDE 31 mmol/l (22-30); CHLORIDE 96 mmol/l (95-108); CREATININE 1.4 mg/dL (0.7-1.3); GFR 51 ML/MIN (>=60 (CALC)); GFR FOR AFR.AMER. > 60 ML/MIN (>=60 (CALC)); POTASSIUM 4.4 mmol/l (3.5-5.1); SGOT/AST 26 u/l (19-48); SODIUM 135 mmol/l (137-146); TOTAL PROTEIN 7.2 g/dL (6.3-8.2)
[2020-07-06 07:03] LABS: ACT PARTIAL THROMBO TIME 25.8 SECONDS (20.0-32.5); INTERNATIONAL NORMALIZED RATIO 1.1 RATIO (0.7-1.3)
== END 2020-07-06 06:55 | disposition short-term general hospital (02) ==
LOC: ED 05:27
PROVIDERS: Family Medicine
PROC: 0T9B70Z Drainage of Bladder with Drainage Device, Via Natural or Artificial Opening (ICD-10-PCS; principal; 2020-07-06)
DX: S72.402A Unspecified fracture of lower end of left femur, initial encounter for closed fracture (principal); U07.1 COVID-19; E11.40 Type 2 diabetes mellitus with diabetic neuropathy, unspecified; I10 Essential (primary) hypertension; I25.10 Atherosclerotic heart disease of native coronary artery without angina pectoris; E66.01 Morbid (severe) obesity due to excess calories; W01.0XXA Fall on same level from slipping, tripping and stumbling without subsequent striking against object, initial encounter; Y92.009 Unspecified place in unspecified non-institutional (private) residence as the place of occurrence of the external cause; Z86.73 Personal history of transient ischemic attack (TIA), and cerebral infarction without residual deficits; Z79.4 Long term (current) use of insulin; Z98.84 Bariatric surgery status; Z96.652 Presence of left artificial knee joint
CPT/HCPCS: L1830

== ENCOUNTER 2021-09-17 20:21 | Observation (INO) | payer MEDICARE, MEDICAID ==
[~2021-09-17] VITALS: Ht 188 cm; Wt 173.0 kg
--- NOTE | 2021-09-17 20:21 | NUR ---
PT TO ROOM VIA EMS STRETCHER FOR BEDSIDE TRIAGE
--- NOTE | 2021-09-17 20:28 | NUR ---
EKG PERFORMED, PT NOTED TO HAVE A-FIB-PT VERBALIZES HISTORY OF A-FIB AND STATES HE HAD THE "WATCHMAN PROCEDURE" AND IS NOT ON A BLOOD THINNER. PT STABLE AT THIS TIME. WILL CONTINUE TO MONITOR
[2021-09-17] MEDS ORDERED: TRESIBA100 UNIT/M SC (20:37)
--- NOTE | 2021-09-17 20:37 | NUR ---
PT USING URINAL TO PROVIDE URINE SAMPLE. COLLECTED AND TO LAB.
[2021-09-17] MEDS ORDERED: KLOR-CON M2020 MEQ PO (20:38)
[2021-09-17] MEDS ORDERED: PROBIOTIC1 TAB PO (20:40)
[2021-09-17] MEDS ORDERED: RENA-VIT1 PO (20:41)
[2021-09-17] MEDS ORDERED: TRAZODONE100 MG PO (20:43)
[2021-09-17] MEDS ORDERED: SENNA-TABS8.6 MG PO (20:44)
[2021-09-17] MEDS ORDERED: TRULICITY3 MG/0.5 M SC (20:46)
[2021-09-17 21:03] LABS: HEMATOCRIT 36.3 % (39.0-50.0); HEMOGLOBIN 11.4 g/dl (14.0-18.0); IMMATURE GRANULOCYTES 0.7 % (0.0-5.0); MEAN CORPUSCULAR HGB 27.9 pG CALC (26.0-32.0); MEAN CORPUSCULAR HGB CONC 31.4 g/dL CAL (32.0-36.0); NEUT# 8.79 thou/uL (1.82-7.42); RED BLOOD COUNT 4.08 mill/uL (4.70-6.10); RED CELL DISTRI WIDTH 18.4 % (11.5-15.5)
[2021-09-17 21:06] LABS: URINE BILIRUBIN - DIPSTICK NEGATIVE (NEGATIVE); URINE BLOOD DIPSTICK TRACE-INTACT (NEGATIVE); URINE COLOR YELLOW; URINE GLUCOSE - DIPSTICK NEGATIVE (NEGATIVE); URINE KETONE NEGATIVE (NEGATIVE); URINE LEUK ESTERASE NEGATIVE (NEGATIVE); URINE PH 6.5 (4.5-8.0); URINE PROTEIN - DIPSTICK TRACE mg/dL (NEG-TRACE); URINE SPECIFIC GRAVITY 1.015; URINE UROBILINOGEN - DIPSTICK 0.2 E.U./dL (0.2)
[2021-09-17 21:08] LABS: URINE NITRITE - DIPSTICK NEGATIVE (Negative)
[2021-09-17] MEDS ORDERED: BUMETANIDE1 MG PO (21:13)
[2021-09-17] MEDS ORDERED: CALCIUM CIT PO (21:15)
[2021-09-17] MEDS ORDERED: FAMOTIDINE20 M1 PO (21:16)
[2021-09-17 21:22] LABS: ALBUMIN 3.6 g/dL (3.2-5.0); ALKALINE PHOSPHATASE 128 u/l (38-126); ANION GAP 14 (6-22 (CALC)); BILIRUBIN, TOTAL 0.8 mg/dL (0.0-1.4); BUN 24 mg/dL (8-23); BUN/CREATININE RATIO 19 (12-20 (CALC)); CARBON DIOXIDE 31 mmol/l (22-30); CHLORIDE 96 mmol/l (95-108); CREATININE 1.3 mg/dL (0.7-1.3); GFR 56 ML/MIN (>=60 (CALC)); GFR FOR AFR.AMER. > 60 ML/MIN (>=60 (CALC)); POTASSIUM 4.3 mmol/l (3.5-5.1); SGOT/AST 32 u/l (19-48); SODIUM 137 mmol/l (137-146); TOTAL PROTEIN 6.8 g/dL (6.3-8.2)
[2021-09-17 21:34] LABS: MYOGLOBIN 190 ng/mL (0 - 121)
--- NOTE | 2021-09-17 22:00 | NUR ---
PER DR VERBAL ORDER, OXYGEN TURNED OFF. WILL CONTINUE TO MONITOR.
--- NOTE | 2021-09-17 22:03 | NUR ---
REPORT GIVEN TO ANNELIESE YANES FOR TRANSITION OF CARE.
--- NOTE | 2021-09-17 22:56 | NUR ---
DETENTION CALLED FOR UPDATE. PT RESTING COMFORTABLY AT THIS TIME.
--- NOTE | 2021-09-17 23:40 | NUR ---
REPORT TO MED SURG CALLED.
--- NOTE | 2021-09-17 23:48 | NUR ---
PATIENT ARRIVED VIA STRETCHER ACCOMPANIED BY Fely HERMOSILLO RN AND Arron BOSS RN. ASSIST X4 REQUIRED TO TRANSFER PT TO BED. LUNG SOUNDS DIMMINISHED, 2L VIA NASALA CANNULA, RUNNING A FIB ON TELEMETRY. ACTIVE BOWEL SOUNDS THROUGHOUT ALL QUADRANTS. SKIN APPEARS DRY AND INTACT, #20 EMS IV ON RIGHT AC, BOLUS STARTED AT THIS TIME, HUNG IN ER BUT NOT GIVEN. PATIENT ORIENTED TO ROOM AND CALL SYSTEM. PLAN OF CARE DISCUSSED AT THIS TIME. CALL LIGHT AND BEDSIDE TABLE WITH IN REACH.
--- NOTE | 2021-09-17 23:55 | NUR ---
TRANSFERRED TO [facility].
[2021-09-18] VITALS: BP 125/61
[2021-09-18 04:00] VITALS: BP 124/62
--- NOTE | 2021-09-18 04:22 | NUR ---
PATIENT SNORING SOFTLY AWOKEN BY WRITTER, DENIES ANY CURRENT NEEDS AT THIS TIME. CALL LIGHT AND BEDSIDE TABLE WITHIN REACH.
[2021-09-18 05:08] LABS: HEMATOCRIT 32.9 % (39.0-50.0); HEMOGLOBIN 10.2 g/dl (14.0-18.0); MEAN CELL VOLUME 89.2 fL CALC (80.0-100.0); MEAN CORPUSCULAR HGB 27.6 pG CALC (26.0-32.0); RED BLOOD COUNT 3.69 mill/uL (4.70-6.10); RED CELL DISTRI WIDTH 18.5 % (11.5-15.5)
[2021-09-18 05:30] LABS: ANION GAP 9 (6-22 (CALC)); BUN 22 mg/dL (8-23); BUN/CREATININE RATIO 17 (12-20 (CALC)); CARBON DIOXIDE 36 mmol/l (22-30); CHLORIDE 98 mmol/l (95-108); CREATININE 1.3 mg/dL (0.7-1.3); GFR 56 ML/MIN (>=60 (CALC)); GFR FOR AFR.AMER. > 60 ML/MIN (>=60 (CALC)); POTASSIUM 3.6 mmol/l (3.5-5.1); SODIUM 139 mmol/l (137-146)
[2021-09-18 05:31] LABS: MAGNESIUM 1.6 mg/dL (1.6-2.3)
[2021-09-18 07:32] VITALS: BP 105/62
--- NOTE | 2021-09-18 07:45 | NUR ---
ASSESSMENT DONE. TELE IN PLACE. PATIENT IS ALERT AND ORIENT X3. PATIENT STATED PAIN IN BACK. MEDICATED PATIENT WITH TYLENOL. LUNGS SOUND DIMINISHED. O2 AT 2L VIA NC SATS 97%. PATIENT DENIES ANY OTHER NEEDS AT THIS TIME. CALL LIGHT IN REACH.
[2021-09-18 10:52] VITALS: BP 131/60
--- NOTE | 2021-09-18 11:15 | NUR ---
PATIENT IS RESTING IN BED WITH NO DISTRESS NOTED. PATIENT DENIES NEEDS. CALL LIGHT IN REACH.
[2021-09-18 15:00] VITALS: BP 116/59
--- NOTE | 2021-09-18 16:21 | NUR ---
PATIENT IS RESTING IN BED WITH NO DISTRESS NOTED. PATIENT HAS O2 OFF. PATIENT DENIES NEEDS AT THIS TIME. CALL LIGHT IN REACH.
[2021-09-18 19:00] VITALS: BP 129/75
--- NOTE | 2021-09-18 19:05 | NUR ---
REPORT RECEIVED FROM Arron DUEÑAS RN
--- NOTE | 2021-09-18 21:29 | NUR ---
MEDICATIOSNA DMINISTERED PER EMAR. NO INSULIN GIVENCBG WITHIN NORMAL RANGE.
--- NOTE | 2021-09-18 23:00 | NUR ---
PATIENT REQUESTION SOMEONE CLOSE HIS BLINDS HE IS TRYING TO SLEEP, ASLO REQUESTING SOMETHING COLD TO DRINK. WRITTER PROVIDED WITH DRINK. NO OTHER REUQEST AT THIS TIME. CALL LIGHT AND BEDSIDE TABLE WITHIN REACH.
[2021-09-19] VITALS: BP 144/69
[2021-09-19 04:00] VITALS: BP 127/68
--- NOTE | 2021-09-19 04:45 | NUR ---
CALL FROM EMAR, PT TELE READING ASYSTOLE, PATIENT CHECKED ON, ATTEMPTING TO REPORTION HIMSELF, REPOSTIONED TELEMETRY BOX. NO VOICED COMPLAINTS AT THIS TIME. CALL LIGHT AND BEDSIDE TABLE WITHIN REACH.
[2021-09-19 05:16] LABS: HEMATOCRIT 32.4 % (39.0-50.0); HEMOGLOBIN 10.1 g/dl (14.0-18.0); MEAN CELL VOLUME 89.8 fL CALC (80.0-100.0); MEAN CORPUSCULAR HGB CONC 31.2 g/dL CAL (32.0-36.0); RED BLOOD COUNT 3.61 mill/uL (4.70-6.10); RED CELL DISTRI WIDTH 18.3 % (11.5-15.5)
[2021-09-19 05:55] LABS: ALBUMIN 3.2 g/dL (3.2-5.0); ALKALINE PHOSPHATASE 82 u/l (38-126); ANION GAP 8 (6-22 (CALC)); BILIRUBIN, TOTAL 0.7 mg/dL (0.0-1.4); BUN 20 mg/dL (8-23); BUN/CREATININE RATIO 18 (12-20 (CALC)); CARBON DIOXIDE 35 mmol/l (22-30); CHLORIDE 99 mmol/l (95-108); CREATININE 1.1 mg/dL (0.7-1.3); GFR > 60 ML/MIN (>=60 (CALC)); GFR FOR AFR.AMER. > 60 ML/MIN (>=60 (CALC)); POTASSIUM 3.9 mmol/l (3.5-5.1); SGOT/AST 23 u/l (19-48); SODIUM 138 mmol/l (137-146); TOTAL PROTEIN 6.3 g/dL (6.3-8.2)
--- NOTE | 2021-09-19 06:08 | NUR ---
CALL RECEIVED FROM ER REGARDING TELEMETRY READING. PT STATES HE IS GOING TO DO WHAT HE WANTS EVEN IF HE SETS OFF THE TELEMETRY, HE STATES HE IS GOING HOME TODAY ANYWAYS. PT REPORTIONING HIMSELF IN BED WHILE TELEETRY MONITORING GOING OFF. EARLIER IN THE SHIFT WRITTER ADVISED PT HIS IV SITE WAS DUE FOR A CHANGE, PT ASKED WHY HE NEEDED A NEW ONE IF HE WAS GOING HOME TOMORROW (09/19). DECLINED IV SITE CHANGE, WRITTER ADVISED IF HE DID NOT LEAVE HOME 09/19 IT WOULD BE CHANGED.
--- NOTE | 2021-09-19 08:00 | NUR ---
PT AWAKE AND ALERT UPON ENTERING ROOM. VERY AGITATED STATING THEY WANT TO LEAVE HOME. PT IS A&O X3, S1 AND S2 HEARD. RADIAL PULSES ARE STRONG. PEDAL PULSES WEAK. LUNG SOUNDS ARE CLEAR UPPER/LOWER LOBES. BOWEL SOUNDS ARE ACTIVE X4. TELE MONITOR IS IN PLACE. IV SITE IS PATENT NO SIGNS OF REDNESS/ INFLAMMTION. CALL LIGHT WITHIN REACH.
--- NOTE | 2021-09-19 10:35 | NUR ---
DR SHAH AND Chase SIMS PAPER RULER AT BEDSIDE DISCUSSING POC
[2021-09-19 11:17] VITALS: BP 118/54
--- NOTE | 2021-09-19 11:18 | NUR ---
RADIOLOGY AT BEDSIDE FOR PCXR
--- NOTE | 2021-09-19 12:00 | NUR ---
PT IS ALERT EATING LUNCH. TELE MONITOR IN PLACE. REPORTS NO PAIN AT THIS TIME. IV SITE IS PATENT. CALL LIGHT MONITOR WITHIN REACH.
[2021-09-19] MEDS ORDERED: DOXYCYCL HYC100 MG PO (12:11)
--- NOTE | 2021-09-19 15:58 | NUR ---
PT LEFT HOSPITAL VIA WHEELCHAIR WITH [facility] CENTRAL SUPPLY SUPERVISOR STAFF TO [facility] AT 1413
== END 2021-09-19 14:20 ==
LOC: ED 20:21 → ED-I 22:51 → ED 23:07 → MS2 23:08
PROVIDERS: Emergency Medicine; Nurse Practitioner Family; ADMIT Hospitalist; ATTEND Hospitalist
DX: J18.9 Pneumonia, unspecified organism (principal); J44.0 Chronic obstructive pulmonary disease with (acute) lower respiratory infection; I13.0 Hypertensive heart and chronic kidney disease with heart failure and stage 1 through stage 4 chronic kidney disease, or unspecified chronic kidney disease; I50.22 Chronic systolic (congestive) heart failure; E11.22 Type 2 diabetes mellitus with diabetic chronic kidney disease; N18.4 Chronic kidney disease, stage 4 (severe); E11.65 Type 2 diabetes mellitus with hyperglycemia; E11.40 Type 2 diabetes mellitus with diabetic neuropathy, unspecified; I25.10 Atherosclerotic heart disease of native coronary artery without angina pectoris; E78.5 Hyperlipidemia, unspecified; I48.91 Unspecified atrial fibrillation; K21.9 Gastro-esophageal reflux disease without esophagitis; E66.01 Morbid (severe) obesity due to excess calories; M19.90 Unspecified osteoarthritis, unspecified site; Z68.42 Body mass index [BMI] 45.0-49.9, adult; Z79.4 Long term (current) use of insulin; Z86.73 Personal history of transient ischemic attack (TIA), and cerebral infarction without residual deficits; Z98.84 Bariatric surgery status; Z86.16 Personal history of COVID-19; Z20.822 Contact with and (suspected) exposure to COVID-19

== ENCOUNTER 2021-11-26 06:23 | Emergency (ER) | payer MEDICARE, OTHER ==
[~2021-11-26] VITALS: Ht 188 cm; Wt 157.0 kg
[~2021-11-26 06:23] MED LIST changes: +CALCIUM CIT PO; +DOXYCYCL HYC100 MG PO; +FAMOTIDINE20 M1 PO; +PROBIOTIC1 TAB PO; +RENA-VIT1 PO; +SENNA-TABS8.6 MG PO; +TRAZODONE100 MG PO; +TRESIBA100 UNIT/M SC; +TRULICITY3 MG/0.5 M SC
--- NOTE | 2021-11-26 06:23 | NUR ---
PT TO ROOM VIA EMS. TRIAGED AT BEDSIDE. MD/RT AT BEDSIDE.
--- NOTE | 2021-11-26 06:40 | NUR ---
PT ARRIVED VIA EMS ON PAP THERAPY. PT SPEAKING IN FULL SENTENCES, SHIVERING. PEDORTHIST PLACED PT ON BIPAP. ABG TO BE OBTAINED SHORTLY. PT DANY PAP WELL AT THIS TIME. PEDORTHIST TO MONITOR.
[2021-11-26 06:42] VITALS: BP 110/79
[2021-11-26 06:56] LABS: IMMATURE GRANULOCYTES 0.5 % (0.0-5.0); MEAN CORPUSCULAR HGB 27.3 pG CALC (26.0-32.0); MEAN CORPUSCULAR HGB CONC 30.7 g/dL CAL (32.0-36.0); NEUT# 10.96 thou/uL (1.82-7.42); RED BLOOD COUNT 4.47 mill/uL (4.70-6.10); RED CELL DISTRI WIDTH 17.3 % (11.5-15.5)
[2021-11-26 06:57] LABS: HEMATOCRIT 39.8 % (39.0-50.0); HEMOGLOBIN 12.2 g/dl (14.0-18.0)
[2021-11-26 07:08] LABS: INTERNATIONAL NORMALIZED RATIO 1.1 RATIO (0.7-1.3)
[2021-11-26 07:12] LABS: ALKALINE PHOSPHATASE 122 u/l (38-126); ANION GAP 14 (6-22 (CALC)); BILIRUBIN, TOTAL 0.8 mg/dL (0.0-1.4); BUN 24 mg/dL (8-23); BUN/CREATININE RATIO 20 (12-20 (CALC)); CARBON DIOXIDE 32 mmol/l (22-30); CHLORIDE 99 mmol/l (95-108); CREATININE 1.2 mg/dL (0.7-1.3); GFR > 60 ML/MIN (>=60 (CALC)); GFR FOR AFR.AMER. > 60 ML/MIN (>=60 (CALC)); POTASSIUM 4.4 mmol/l (3.5-5.1); SGOT/AST 35 u/l (19-48); SODIUM 140 mmol/l (137-146)
--- NOTE | 2021-11-26 07:15 | NUR ---
HI FOWLERS. BIPAP IN PLACE. VSS. PORT AT RT CHEST ACCESSED. SKIN WARM AND DRY. PT A&OX3. MD AT BEDSIDE.
[2021-11-26] MEDS ORDERED: BUPROPION HCL100 M1 PO (07:44)
--- NOTE | 2021-11-26 08:00 | NUR ---
PT REPOSITIONED BY STAFF. BIPAP CONTINUED. PORT SITE HEALTHY. SKIN WARM AND DRY. VSS.
--- NOTE | 2021-11-26 08:49 | NUR ---
PT AWARE OF PENDING ADMIT. REPOSITIONED BY STAFF. BIPAP CONTINUES. CAP REFILL BRISK. PORT HEALTHY.
--- NOTE | 2021-11-26 08:57 | NUR ---
REPORT PROVIDED TO ANNELIESE FOWLER, IN ICU.
--- NOTE | 2021-11-26 08:57 | NUR ---
PT REMOVED BIPAP. REFUSES TO PUT IT BACK ON. REFUSES O2 VIA NC. STATES HE IS REALLY TIRED AND DOES NOT WANT TO DO ANY OF THIS ANYMORE. ADVISED AND IS AT BEDSIDE WITH PT.
--- NOTE | 2021-11-26 09:00 | NUR ---
AT BEDSIDE WITH PT. PT IS FIRM IN NOT WANTING BIPAP. PT ON 6L/M O2 VIA NC. DR MCDONOUGH CALLED IN ICU AND ADVISED OF UPDATED PT CONDITION. PT SATS 96 ON NC. PT IS A&OX3 WITH THIS NURSE. PT IS CALM. BP 121/54 HR 60 SKIN WARM AND DRY. CAP REFILL BRISK.
--- NOTE | 2021-11-26 09:55 | NUR ---
ADVISED OF PT'S DESIRE TO RETURN TO SNF DOES NOT WANT TO BE ADMITTED.
--- NOTE | 2021-11-26 10:19 | NUR ---
UPON ARRIVAL TO ER TO DO SCHED CHECK ON NIV, FIELD CROP I FARMWORKER FOUND PT OFF BIPAP, DECLARING HE WANTS THE PAPERWORK TO LEAVE. FIELD CROP I FARMWORKER INFORMED
--- NOTE | 2021-11-26 10:30 | NUR ---
PER DR MCDONOUGH PT CAN SIGN OUT AGAINST MEDICAL ADVISED AND RETURN TO SNF.
--- NOTE | 2021-11-26 10:50 | NUR ---
PT TALKING ON PORTABLE PHONE WITH SPOUSE. VSS. SATS 92 RA, HR 65, BP 137/52, RR 16. ABLE TO SPEAK COMPLETE SENTENCES WITHOUT DIFFICULTY
--- NOTE | 2021-11-26 11:24 | NUR ---
DR MCDONOUGH WILL SEND PT AMA TO TO SNF ON PO ABT.
[2021-11-26] MEDS ORDERED: LEVAQUIN750 M1 PO (11:26)
--- NOTE | 2021-11-26 12:15 | NUR ---
AMA WAS DISCUSSED WITH PT IN EMERGENCY ROOM WITH NURSE BEFORE TRANSFER TO FLOOR, THIS MARINE WELDER WENT TO ER AND DISCUSSED RISKS AND BENEFITS OF BEING ADMITTED AND SIGNING OUT AMA. DR. PLASENCIA WAS INFORMED AND PT HAS DECIDED TO LEAVE AMA BEFORE COMING TO FLOOR AFTER HAVING BEEN THRU ADMISSION ORDERS FROM ER DOCTOR.
--- NOTE | 2021-11-26 12:48 | NUR ---
REPORT CALLED TO JONAS, NURSE AT [facility]
--- NOTE | 2021-11-26 13:24 | NUR ---
Pt. discharged home in stable condition. PT DISCHARGED TO [facility] VIA ACCOMPANIED BY R STAFF. Patient decides to leave AMA. Multiple attempts made to ecourage patient to remain here for continued treatment. Explained to patient all risks of leaving against medical advice including . Pt verbalized understanding of all risks. Pt also encouraged to return to [facility] at any time, especially if symptoms continue or become worse. Pt verbalized understanding.
== END 2021-11-26 12:15 | disposition left against medical advice (07) ==
LOC: ED 06:23 → ED-I 08:12 → ED 08:30 → ICU 08:31
PROVIDERS: Emergency Medicine
PROC: 5A09357 Assistance with Respiratory Ventilation, Less than 24 Consecutive Hours, Continuous Positive Airway Pressure (ICD-10-PCS; principal; 2021-11-26)
DX: J18.9 Pneumonia, unspecified organism (principal); I13.0 Hypertensive heart and chronic kidney disease with heart failure and stage 1 through stage 4 chronic kidney disease, or unspecified chronic kidney disease; I50.9 Heart failure, unspecified; E11.22 Type 2 diabetes mellitus with diabetic chronic kidney disease; N18.9 Chronic kidney disease, unspecified; E11.40 Type 2 diabetes mellitus with diabetic neuropathy, unspecified; I48.91 Unspecified atrial fibrillation; I25.10 Atherosclerotic heart disease of native coronary artery without angina pectoris; E78.5 Hyperlipidemia, unspecified; K21.9 Gastro-esophageal reflux disease without esophagitis; E66.01 Morbid (severe) obesity due to excess calories; Z68.43 Body mass index [BMI] 50.0-59.9, adult; Z86.73 Personal history of transient ischemic attack (TIA), and cerebral infarction without residual deficits; Z98.84 Bariatric surgery status; Z79.4 Long term (current) use of insulin; Z91.19 Patient's noncompliance with other medical treatment and regimen; Z20.822 Contact with and (suspected) exposure to COVID-19

== ENCOUNTER 2022-01-11 09:54 | Observation (INO) | payer MEDICARE, OTHER ==
[~2022-01-11] VITALS: Ht 188 cm; Wt 168.0 kg
[~2022-01-11 09:54] MED LIST changes: +BUPROPION HCL100 M1 PO; +LEVAQUIN750 M1 PO
--- NOTE | 2022-01-11 09:54 | NUR ---
PT TO ROOM 10 VIA EMS
[2022-01-11] MEDS ORDERED: OMEPRAZOLE20 M3 PO (10:37)
[2022-01-11 10:43] LABS: HEMATOCRIT 41.7 % (39.0-50.0); HEMOGLOBIN 12.7 g/dl (14.0-18.0); IMMATURE GRANULOCYTES 0.3 % (0.0-5.0); MEAN CELL VOLUME 87.8 fL CALC (80.0-100.0); MEAN CORPUSCULAR HGB 26.7 pG CALC (26.0-32.0); MEAN CORPUSCULAR HGB CONC 30.5 g/dL CAL (32.0-36.0); NEUT# 15.96 thou/uL (1.82-7.42); RED BLOOD COUNT 4.75 mill/uL (4.70-6.10); RED CELL DISTRI WIDTH 18.3 % (11.5-15.5)
[2022-01-11] MEDS ORDERED: ACETAMINOPHEN325 MG PO (10:48)
[2022-01-11] MEDS ORDERED: TENORMIN PO (10:51)
[2022-01-11] MEDS ORDERED: TRAMADOL HYDROC50 M1 PO (10:54)
[2022-01-11] MEDS ORDERED: TIZANIDINE HYDRO2 MG PO (10:55)
[2022-01-11 11:02] LABS: ALBUMIN 3.8 g/dL (3.2-5.0); ALKALINE PHOSPHATASE 115 u/l (38-126); BILIRUBIN, TOTAL 0.8 mg/dL (0.0-1.4); BUN 30 mg/dL (8-23); BUN/CREATININE RATIO 24 (12-20 (CALC)); CARBON DIOXIDE 35 mmol/l (22-30); CHLORIDE 97 mmol/l (95-108); CREATININE 1.3 mg/dL (0.7-1.3); GFR 55 ML/MIN (>=60 (CALC)); GFR FOR AFR.AMER. > 60 ML/MIN (>=60 (CALC)); SGOT/AST 32 u/l (19-48); SODIUM 138 mmol/l (137-146); TOTAL PROTEIN 7.3 g/dL (6.3-8.2)
[2022-01-11 11:04] LABS: ANION GAP 10 (6-22 (CALC)); POTASSIUM 4.1 mmol/l (3.5-5.1)
[2022-01-11 11:14] LABS: MYOGLOBIN 165 ng/mL (0 - 121)
[2022-01-11 12:20] LABS: URINE BILIRUBIN - DIPSTICK NEGATIVE (NEGATIVE); URINE BLOOD DIPSTICK SMALL (NEGATIVE); URINE COLOR YELLOW; URINE GLUCOSE - DIPSTICK NEGATIVE (NEGATIVE); URINE KETONE NEGATIVE (NEGATIVE); URINE LEUK ESTERASE NEGATIVE (NEGATIVE); URINE PH 5.5 (4.5-8.0); URINE PROTEIN - DIPSTICK 30 mg/dL (NEG-TRACE); URINE SPECIFIC GRAVITY >=1.030; URINE UROBILINOGEN - DIPSTICK 0.2 E.U./dL (0.2)
[2022-01-11 12:22] LABS: URINE NITRITE - DIPSTICK NEGATIVE (Negative)
[2022-01-11 12:41] LABS: URINE SQUAMOUS EPITHELIAL CELL FEW EPI/hpf (0-FEW); URINE WBC 0-2 WBC/hpf (0-5)
--- NOTE | 2022-01-11 17:56 | NUR ---
ADMIT REPORT CALLED TO DIANE FOR ROOM 274
[2022-01-11 18:19] VITALS: BP 103/60
--- NOTE | 2022-01-11 18:43 | NUR ---
REPORT RECEIVED FROM PARESH IN ED, PT ARRIVED ON UNIT AT 1803 VIA STRETCHER AND TRANSFERRED TO BED. ALERT AND ORIENTED X 3, NO C/O PAIN, TELE MONITOR IN PLACE, O2 IN PLACE VIA HIGHFLO RAE @ 6L, IV ABT INFUSING TO SITE IN LAC. ORIENTED TO ROOM AND CALL ANDRADE AFTER SETTLING IN BED, CALL ANDRADE IN REACH.
[2022-01-12 01:13] VITALS: BP 112/47
[2022-01-12 04:30] VITALS: BP 103/56
[2022-01-12 05:54] LABS: IMMATURE GRANULOCYTES 0.2 % (0.0-5.0); MEAN CELL VOLUME 87.6 fL CALC (80.0-100.0); MEAN CORPUSCULAR HGB 27.2 pG CALC (26.0-32.0); MEAN CORPUSCULAR HGB CONC 31.1 g/dL CAL (32.0-36.0); NEUT# 9.39 thou/uL (1.82-7.42); RED BLOOD COUNT 3.86 mill/uL (4.70-6.10); RED CELL DISTRI WIDTH 18.3 % (11.5-15.5)
[2022-01-12 05:55] LABS: HEMATOCRIT 33.8 % (39.0-50.0); HEMOGLOBIN 10.5 g/dl (14.0-18.0)
[2022-01-12 06:08] LABS: ALKALINE PHOSPHATASE 77 u/l (38-126); BILIRUBIN, TOTAL 0.9 mg/dL (0.0-1.4); BUN 30 mg/dL (8-23); BUN/CREATININE RATIO 24 (12-20 (CALC)); CARBON DIOXIDE 33 mmol/l (22-30); CHLORIDE 98 mmol/l (95-108); CREATININE 1.2 mg/dL (0.7-1.3); GFR > 60 ML/MIN (>=60 (CALC)); GFR FOR AFR.AMER. > 60 ML/MIN (>=60 (CALC)); MAGNESIUM 1.7 mg/dL (1.6-2.3); SGOT/AST 25 u/l (19-48); SODIUM 136 mmol/l (137-146)
[2022-01-12 06:10] LABS: ANION GAP 9 (6-22 (CALC)); POTASSIUM 3.9 mmol/l (3.5-5.1)
[2022-01-12 06:24] LABS: ALBUMIN 2.9 g/dL (3.2-5.0); TOTAL PROTEIN 5.6 g/dL (6.3-8.2)
[2022-01-12 06:32] LABS: DIGOXIN < 0.4 ng/mL (0.8-2.0)
[2022-01-12 08:00] VITALS: BP 133/68
--- NOTE | 2022-01-12 10:48 | NUR ---
RECEIVE REPORT THIS MORNING FROM RENZO CYO. PATIENT STABLE AT THIS TIME. NO REPORT PAIN.
[2022-01-12 11:01] VITALS: BP 108/51
[2022-01-12] MEDS ORDERED: ZPAK PO (12:37)
[2022-01-12] MEDS ORDERED: DEXAMETHASON6 MG PO (12:37)
--- NOTE | 2022-01-12 14:44 | NUR ---
PATIENT DISCHARGED LIVING STABLE TO [facility].
--- NOTE | 2022-01-12 15:59 | NUR ---
Patient is screened for PT intervention and no needs are identified at this time
== END 2022-01-12 14:35 ==
LOC: ED 09:54 → ED-I 15:20 → ED 15:37 → MS2 15:38
PROVIDERS: Emergency Medicine; ADMIT Internal Medicine; ATTEND Internal Medicine
DX: J18.9 Pneumonia, unspecified organism (principal); J44.0 Chronic obstructive pulmonary disease with (acute) lower respiratory infection; R09.02 Hypoxemia; I13.0 Hypertensive heart and chronic kidney disease with heart failure and stage 1 through stage 4 chronic kidney disease, or unspecified chronic kidney disease; I50.9 Heart failure, unspecified; E11.22 Type 2 diabetes mellitus with diabetic chronic kidney disease; N18.9 Chronic kidney disease, unspecified; I48.91 Unspecified atrial fibrillation; I25.10 Atherosclerotic heart disease of native coronary artery without angina pectoris; E11.40 Type 2 diabetes mellitus with diabetic neuropathy, unspecified; K21.9 Gastro-esophageal reflux disease without esophagitis; E78.5 Hyperlipidemia, unspecified; E66.01 Morbid (severe) obesity due to excess calories; Z98.84 Bariatric surgery status; Z68.42 Body mass index [BMI] 45.0-49.9, adult; Z79.84 Long term (current) use of oral hypoglycemic drugs; Z86.73 Personal history of transient ischemic attack (TIA), and cerebral infarction without residual deficits; Z86.16 Personal history of COVID-19; Z20.822 Contact with and (suspected) exposure to COVID-19

== ENCOUNTER 2023-05-09 14:42 | Inpatient (IN) | payer MEDICARE, OTHER ==
[~2023-05-09] VITALS: Ht 188 cm; Wt 160.7 kg
[~2023-05-09 14:42] MED LIST changes: +ACETAMINOPHEN325 MG PO; +DEXAMETHASON6 MG PO; +OMEPRAZOLE20 M3 PO; +TENORMIN PO; +TIZANIDINE HYDRO2 MG PO; +TRAMADOL HYDROC50 M1 PO; +ZPAK PO
[2023-05-09 15:10] VITALS: BP 112/66
[2023-05-09 15:27] LABS: BASO% 0.4 % (0-3); EOS% 6.2 % (0-8); HEMATOCRIT 41.1 % (39.0-50.0); HEMOGLOBIN 12.5 g/dl (14.0-18.0); IMMATURE GRANULOCYTES 0.3 % (0.0-5.0); LYMPH% 18.5 % (15-41); MEAN CELL VOLUME 80.7 fL CALC (80.0-100.0); MEAN CORPUSCULAR HGB 24.6 pG CALC (26.0-32.0); MEAN CORPUSCULAR HGB CONC 30.4 g/dL CAL (32.0-36.0); MONO% 8.5 % (2-13); NEUT# 4.61 thou/uL (1.82-7.42); NEUT% 66.1 % (42-76); RED BLOOD COUNT 5.09 mill/uL (4.70-6.10); RED CELL DISTRI WIDTH 17.4 % (11.5-15.5)
[2023-05-09 15:35] LABS: ANION GAP 10 (6-22 (CALC)); BUN 19 mg/dL (8-23); BUN/CREATININE RATIO 14 (12-20 (CALC)); CARBON DIOXIDE 31 mmol/l (22-30); CHLORIDE 102 mmol/l (95-108); CREATININE 1.3 mg/dL (0.7-1.3); GFR FOR AFR.AMER. > 60 ML/MIN (>=60 (CALC)); GFR OTHER RACES 55 ML/MIN (>=60 (CALC)); MAGNESIUM 1.4 mg/dL (1.6-2.3); POTASSIUM 3.6 mmol/l (3.5-5.1); SODIUM 139 mmol/l (137-146)
[2023-05-09 19:53] VITALS: BP 128/59
[2023-05-10] VITALS (9 sets, daily range): BP systolic 94–115; BP diastolic 40–61
[2023-05-10 03:56] LABS: URINE BILIRUBIN - DIPSTICK NEGATIVE (NEGATIVE); URINE BLOOD DIPSTICK NEGATIVE (NEGATIVE); URINE COLOR YELLOW; URINE GLUCOSE - DIPSTICK NEGATIVE (NEGATIVE); URINE KETONE NEGATIVE (NEGATIVE); URINE LEUK ESTERASE NEGATIVE (NEGATIVE); URINE NITRITE - DIPSTICK NEGATIVE (Negative); URINE PH 5.5 (4.5-8.0); URINE PROTEIN - DIPSTICK NEGATIVE (NEG-TRACE); URINE SPECIFIC GRAVITY 1.015; URINE UROBILINOGEN - DIPSTICK 0.2 E.U./dL (0.2)
[2023-05-10 06:01] LABS: BASO% 0.5 % (0-3); EOS% 7.3 % (0-8); HEMATOCRIT 37.3 % (39.0-50.0); HEMOGLOBIN 11.4 g/dl (14.0-18.0); IMMATURE GRANULOCYTES 0.2 % (0.0-5.0); LYMPH% 21.8 % (15-41); MEAN CELL VOLUME 81.3 fL CALC (80.0-100.0); MEAN CORPUSCULAR HGB 24.8 pG CALC (26.0-32.0); MEAN CORPUSCULAR HGB CONC 30.6 g/dL CAL (32.0-36.0); MONO% 10.5 % (2-13); NEUT# 3.76 thou/uL (1.82-7.42); NEUT% 59.7 % (42-76); RED BLOOD COUNT 4.59 mill/uL (4.70-6.10); RED CELL DISTRI WIDTH 17.3 % (11.5-15.5)
[2023-05-10 06:20] LABS: ALBUMIN 3.2 g/dL (3.2-5.0); ALKALINE PHOSPHATASE 124 u/l (38-126); BUN 19 mg/dL (8-23); BUN/CREATININE RATIO 16 (12-20 (CALC)); CARBON DIOXIDE 31 mmol/l (22-30); CHLORIDE 101 mmol/l (95-108); CREATININE 1.2 mg/dL (0.7-1.3); GFR FOR AFR.AMER. > 60 ML/MIN (>=60 (CALC)); GFR OTHER RACES > 60 ML/MIN (>=60 (CALC)); MAGNESIUM 1.4 mg/dL (1.6-2.3); SGOT/AST 28 u/l (19-48); SODIUM 139 mmol/l (137-146); TOTAL PROTEIN 6.1 g/dL (6.3-8.2)
[2023-05-10 06:26] LABS: ANION GAP 10 (6-22 (CALC)); BILIRUBIN, TOTAL 0.3 mg/dL (0.2-1.3); POTASSIUM 2.7 mmol/l (3.5-5.1)
[2023-05-11] VITALS (8 sets, daily range): BP systolic 93–125; BP diastolic 35–68
[2023-05-11 06:11] LABS: BASO% 0.7 % (0-3); EOS% 6.1 % (0-8); HEMATOCRIT 38.9 % (39.0-50.0); HEMOGLOBIN 11.8 g/dl (14.0-18.0); IMMATURE GRANULOCYTES 0.3 % (0.0-5.0); LYMPH% 20.3 % (15-41); MEAN CELL VOLUME 81.7 fL CALC (80.0-100.0); MEAN CORPUSCULAR HGB 24.8 pG CALC (26.0-32.0); MEAN CORPUSCULAR HGB CONC 30.3 g/dL CAL (32.0-36.0); MONO% 9.7 % (2-13); NEUT# 3.62 thou/uL (1.82-7.42); NEUT% 62.9 % (42-76); RED BLOOD COUNT 4.76 mill/uL (4.70-6.10); RED CELL DISTRI WIDTH 17.3 % (11.5-15.5)
[2023-05-11 06:24] LABS: ALBUMIN 3.3 g/dL (3.2-5.0); ALKALINE PHOSPHATASE 118 u/l (38-126); BUN 20 mg/dL (8-23); BUN/CREATININE RATIO 17 (12-20 (CALC)); CARBON DIOXIDE 30 mmol/l (22-30); CHLORIDE 100 mmol/l (95-108); CREATININE 1.2 mg/dL (0.7-1.3); GFR FOR AFR.AMER. > 60 ML/MIN (>=60 (CALC)); GFR OTHER RACES > 60 ML/MIN (>=60 (CALC)); SGOT/AST 24 u/l (19-48); SODIUM 137 mmol/l (137-146); TOTAL PROTEIN 6.4 g/dL (6.3-8.2)
[2023-05-11 06:26] LABS: ANION GAP 10 (6-22 (CALC)); BILIRUBIN, TOTAL 0.6 mg/dL (0.2-1.3); MAGNESIUM 1.8 mg/dL (1.6-2.3); POTASSIUM 3.4 mmol/l (3.5-5.1)
[2023-05-12 05:11] LABS: HEMATOCRIT 38.2 % (39.0-50.0); HEMOGLOBIN 11.6 g/dl (14.0-18.0); MEAN CELL VOLUME 81.4 fL CALC (80.0-100.0); MEAN CORPUSCULAR HGB 24.7 pG CALC (26.0-32.0); MEAN CORPUSCULAR HGB CONC 30.4 g/dL CAL (32.0-36.0); RED BLOOD COUNT 4.69 mill/uL (4.70-6.10)
[2023-05-12 05:13] VITALS: BP 111/55
[2023-05-12 05:31] LABS: ALBUMIN 3.1 g/dL (3.2-5.0); ALKALINE PHOSPHATASE 115 u/l (38-126); ANION GAP 11 (6-22 (CALC)); BILIRUBIN, TOTAL 0.7 mg/dL (0.2-1.3); BUN 19 mg/dL (8-23); BUN/CREATININE RATIO 16 (12-20 (CALC)); CARBON DIOXIDE 31 mmol/l (22-30); CHLORIDE 98 mmol/l (95-108); CREATININE 1.3 mg/dL (0.7-1.3); GFR FOR AFR.AMER. > 60 ML/MIN (>=60 (CALC)); GFR OTHER RACES 55 ML/MIN (>=60 (CALC)); MAGNESIUM 1.5 mg/dL (1.6-2.3); POTASSIUM 3.5 mmol/l (3.5-5.1); SGOT/AST 23 u/l (19-48); SODIUM 136 mmol/l (137-146); TOTAL PROTEIN 5.8 g/dL (6.3-8.2)
[2023-05-12 06:36] VITALS: BP 95/44
[2023-05-12 07:02] VITALS: BP 95/44
[2023-05-12 12:00] VITALS: BP 99/51
[2023-05-12 12:02] VITALS: BP 111/59
[2023-05-12 12:23] VITALS: BP 111/59
[2023-05-12] MEDS ORDERED: BUMETANIDE1 MG PO (12:25)
[2023-05-12] MEDS ORDERED: METOLAZONE2.5 MG PO (12:25)
[2023-05-12] MEDS ORDERED: AMILORIDE5 MG PO (12:25)
[2023-05-12] MEDS ORDERED: SLOW-MAG PO (12:25)
== END 2023-05-12 14:30 | DRG 291 ==
LOC: MS2 14:42
PROVIDERS: Nurse Practitioner Family; ADMIT Internal Medicine; ATTEND Internal Medicine
DX: I13.0 Hypertensive heart and chronic kidney disease with heart failure and stage 1 through stage 4 chronic kidney disease, or unspecified chronic kidney disease (principal); I50.33 Acute on chronic diastolic (congestive) heart failure; Z68.43 Body mass index [BMI] 50.0-59.9, adult; I48.20 Chronic atrial fibrillation, unspecified; L97.929 Non-pressure chronic ulcer of unspecified part of left lower leg with unspecified severity; L97.919 Non-pressure chronic ulcer of unspecified part of right lower leg with unspecified severity; N18.9 Chronic kidney disease, unspecified; E11.42 Type 2 diabetes mellitus with diabetic polyneuropathy; E11.22 Type 2 diabetes mellitus with diabetic chronic kidney disease; I25.10 Atherosclerotic heart disease of native coronary artery without angina pectoris; R23.8 Other skin changes; E87.6 Hypokalemia; E83.42 Hypomagnesemia; M19.90 Unspecified osteoarthritis, unspecified site; E66.01 Morbid (severe) obesity due to excess calories; Z98.84 Bariatric surgery status; E78.5 Hyperlipidemia, unspecified; F32.A Depression, unspecified; K21.9 Gastro-esophageal reflux disease without esophagitis; T50.2X6A Underdosing of carbonic-anhydrase inhibitors, benzothiadiazides and other diuretics, initial encounter; Z99.3 Dependence on wheelchair; Z95.818 Presence of other cardiac implants and grafts; Z91.128 Patient's intentional underdosing of medication regimen for other reason
CPT/HCPCS: J1650; J3475

== ENCOUNTER 2023-05-14 14:57 | Emergency (ER) | payer MEDICARE, OTHER ==
[2023-05-14] VITALS (11 sets, daily range): BP systolic 103–139; BP diastolic 58–96
[~2023-05-14] VITALS: Ht 188 cm; Wt 157.8 kg
[~2023-05-14 14:57] MED LIST changes: +AMILORIDE5 MG PO; +SLOW-MAG PO
[2023-05-14 15:54] LABS: BASO% 0.6 % (0-3); EOS% 5.9 % (0-8); HEMATOCRIT 39.7 % (39.0-50.0); HEMOGLOBIN 11.9 g/dl (14.0-18.0); IMMATURE GRANULOCYTES 0.1 % (0.0-5.0); LYMPH% 18.4 % (15-41); MEAN CELL VOLUME 81.7 fL CALC (80.0-100.0); MEAN CORPUSCULAR HGB 24.5 pG CALC (26.0-32.0); MONO% 9.1 % (2-13); NEUT# 4.69 thou/uL (1.82-7.42); NEUT% 65.9 % (42-76); RED BLOOD COUNT 4.86 mill/uL (4.70-6.10)
[2023-05-14 16:17] LABS: ALBUMIN 3.6 g/dL (3.2-5.0); BILIRUBIN, TOTAL 0.9 mg/dL (0.2-1.3); CREATININE 1.7 mg/dL (0.7-1.3); POTASSIUM 2.9 mmol/l (3.5-5.1); TOTAL PROTEIN 6.8 g/dL (6.3-8.2)
== END 2023-05-14 19:47 | disposition home or self-care (01) ==
LOC: ED 14:57
PROVIDERS: Family Medicine
DX: E87.6 Hypokalemia (principal); R00.1 Bradycardia, unspecified; I11.0 Hypertensive heart disease with heart failure; I50.9 Heart failure, unspecified; J44.9 Chronic obstructive pulmonary disease, unspecified; E11.40 Type 2 diabetes mellitus with diabetic neuropathy, unspecified; I48.91 Unspecified atrial fibrillation; I25.10 Atherosclerotic heart disease of native coronary artery without angina pectoris; E78.5 Hyperlipidemia, unspecified; E66.01 Morbid (severe) obesity due to excess calories; K21.9 Gastro-esophageal reflux disease without esophagitis; Z98.84 Bariatric surgery status; Z79.4 Long term (current) use of insulin
CPT/HCPCS: J3475

== ENCOUNTER 2023-05-27 13:29 | Observation (INO) | payer MEDICARE, OTHER ==
[~2023-05-27] VITALS: Ht 188 cm; Wt 162.8 kg
[2023-05-27] VITALS (11 sets, daily range): BP systolic 104–147; BP diastolic 42–81
[2023-05-27 14:47] LABS: BASO% 0.8 % (0-3); EOS% 4.7 % (0-8); HEMATOCRIT 38.6 % (39.0-50.0); HEMOGLOBIN 11.6 g/dl (14.0-18.0); IMMATURE GRANULOCYTES 0.6 % (0.0-5.0); LYMPH% 15.8 % (15-41); MEAN CELL VOLUME 80.8 fL CALC (80.0-100.0); MEAN CORPUSCULAR HGB 24.3 pG CALC (26.0-32.0); MEAN CORPUSCULAR HGB CONC 30.1 g/dL CAL (32.0-36.0); MONO% 7.5 % (2-13); NEUT# 5.11 thou/uL (1.82-7.42); NEUT% 70.6 % (42-76); RED BLOOD COUNT 4.78 mill/uL (4.70-6.10); RED CELL DISTRI WIDTH 16.8 % (11.5-15.5)
[2023-05-27 14:56] LABS: ALBUMIN 3.5 g/dL (3.2-5.0); ALKALINE PHOSPHATASE 115 u/l (38-126); ANION GAP 11 (6-22 (CALC)); BUN 18 mg/dL (8-23); BUN/CREATININE RATIO 16 (12-20 (CALC)); CARBON DIOXIDE 32 mmol/l (22-30); CHLORIDE 101 mmol/l (95-108); CREATININE 1.2 mg/dL (0.7-1.3); GFR FOR AFR.AMER. > 60 ML/MIN (>=60 (CALC)); GFR OTHER RACES > 60 ML/MIN (>=60 (CALC)); POTASSIUM 3.1 mmol/l (3.5-5.1); SGOT/AST 31 u/l (19-48); SODIUM 140 mmol/l (137-146)
[2023-05-27 14:57] LABS: BILIRUBIN, TOTAL 0.5 mg/dL (0.2-1.3)
[2023-05-27] MEDS ORDERED: TRULICITY3 MG/0.5 M SC (16:53)
[2023-05-28 04:38] VITALS: BP 115/52
[2023-05-28 05:35] LABS: HEMATOCRIT 38.1 % (39.0-50.0); HEMOGLOBIN 11.6 g/dl (14.0-18.0); MEAN CELL VOLUME 81.2 fL CALC (80.0-100.0); MEAN CORPUSCULAR HGB 24.7 pG CALC (26.0-32.0); MEAN CORPUSCULAR HGB CONC 30.4 g/dL CAL (32.0-36.0); RED BLOOD COUNT 4.69 mill/uL (4.70-6.10); RED CELL DISTRI WIDTH 16.9 % (11.5-15.5)
[2023-05-28 05:50] LABS: ALBUMIN 3.3 g/dL (3.2-5.0); ALKALINE PHOSPHATASE 113 u/l (38-126); ANION GAP 9 (6-22 (CALC)); BILIRUBIN, TOTAL 0.5 mg/dL (0.2-1.3); BUN 20 mg/dL (8-23); BUN/CREATININE RATIO 17 (12-20 (CALC)); CARBON DIOXIDE 32 mmol/l (22-30); CHLORIDE 102 mmol/l (95-108); CREATININE 1.2 mg/dL (0.7-1.3); GFR FOR AFR.AMER. > 60 ML/MIN (>=60 (CALC)); GFR OTHER RACES > 60 ML/MIN (>=60 (CALC)); MAGNESIUM 1.4 mg/dL (1.6-2.3); POTASSIUM 3.2 mmol/l (3.5-5.1); SGOT/AST 28 u/l (19-48); SODIUM 140 mmol/l (137-146); TOTAL PROTEIN 6.6 g/dL (6.3-8.2)
[2023-05-28 07:18] VITALS: BP 113/56
== END 2023-05-28 13:42 | disposition home health service (06) ==
LOC: ED 13:29 → MS2 15:50
PROVIDERS: Family Medicine; ADMIT Internal Medicine; ATTEND Internal Medicine
DX: E11.42 Type 2 diabetes mellitus with diabetic polyneuropathy (principal); E87.6 Hypokalemia; E83.42 Hypomagnesemia; I69.354 Hemiplegia and hemiparesis following cerebral infarction affecting left non-dominant side; I13.0 Hypertensive heart and chronic kidney disease with heart failure and stage 1 through stage 4 chronic kidney disease, or unspecified chronic kidney disease; E11.22 Type 2 diabetes mellitus with diabetic chronic kidney disease; I50.22 Chronic systolic (congestive) heart failure; N18.30 Chronic kidney disease, stage 3 unspecified; I48.20 Chronic atrial fibrillation, unspecified; I25.10 Atherosclerotic heart disease of native coronary artery without angina pectoris; J44.9 Chronic obstructive pulmonary disease, unspecified; K21.9 Gastro-esophageal reflux disease without esophagitis; E78.5 Hyperlipidemia, unspecified; E66.01 Morbid (severe) obesity due to excess calories; Z79.4 Long term (current) use of insulin; Z98.84 Bariatric surgery status; Z68.43 Body mass index [BMI] 50.0-59.9, adult; Z95.818 Presence of other cardiac implants and grafts
CPT/HCPCS: J3475

== ENCOUNTER 2023-07-03 08:36 | Observation (INO) | payer MEDICARE, OTHER ==
[~2023-07-03] VITALS: Ht 188 cm; Wt 154.4 kg
[2023-07-03] VITALS (7 sets, daily range): BP systolic 93–117; BP diastolic 45–71
--- NOTE | 2023-07-03 08:44 | NUR ---
PT ARRIVED VIA EMS TO ROOM 9 C/O SOB THAT STARTED AT 4 AM. NO MEDS GIVEN REGISTRATION CLERK.
[2023-07-03 09:20] LABS: ALBUMIN 3.8 g/dL (3.2-5.0); BASO% 0.4 % (0-3); CREATININE 1.6 mg/dL (0.7-1.3); EOS% 3.5 % (0-8); HEMATOCRIT 40.6 % (39.0-50.0); HEMOGLOBIN 12.5 g/dl (14.0-18.0); IMMATURE GRANULOCYTES 0.2 % (0.0-5.0); LYMPH% 11.1 % (15-41); MEAN CELL VOLUME 80.9 fL CALC (80.0-100.0); MEAN CORPUSCULAR HGB 24.9 pG CALC (26.0-32.0); MEAN CORPUSCULAR HGB CONC 30.8 g/dL CAL (32.0-36.0); MONO% 5.5 % (2-13); NEUT# 6.62 thou/uL (1.82-7.42); NEUT% 79.3 % (42-76); RED BLOOD COUNT 5.02 mill/uL (4.70-6.10); RED CELL DISTRI WIDTH 16.6 % (11.5-15.5); TOTAL PROTEIN 7.3 g/dL (6.3-8.2)
[2023-07-03 09:27] LABS: BILIRUBIN, TOTAL 0.8 mg/dL (0.2-1.3)
--- NOTE | 2023-07-03 12:05 | NUR ---
VERBAL REPORT CALLED TO NEIDA COY ON MED-SURG. PATIENT TRANSPORTED WITH TELE.
--- NOTE | 2023-07-03 12:47 | NUR ---
RECEIVE PATIENT FROM ER. REPORT FROM SULEMAN ER NURSE. PT ALERT AND ORIENTED X3. REPORT PAIN AND DISCOMFORT IN THE LOWER BACK. REFER HAVE SKIN ISSUE IN THE SCROTUM AND SACRUM IT IS OBSERVED RED, GURMEET AND MACERATED. BUT IT DOES NOT ALLOW A PHOTOGRAPH TO BE TAKEN. HE ALSO HAS SKIN ISSUES IN BOTH LEG. HE HAS BOTH LEGS WITH DRESSING. HE REFERS THAT HIS DRESSING WAS CHANGED YESTERDAY AND HIS TURN AGAIN ON SUNDAY. I DID NOT ALLOW THE DRESSING TO BE REMOVED TO OBSERVE IT AND TAKE A PHOTO. PT IS EDUCATED ABOUD MEDICATIONS, ADMISSION AND NURSING PLAN. PT REFER UNDERSTAND. SAFETY AND FALL PRECAUTIONS IN PLACE. CALL LIGHT WITHIN IN REACH.
--- NOTE | 2023-07-03 19:33 | NUR ---
PATIENT RESTING IN BED POSITIONED ON LEFT SIDE WITH HOB ELEVATED. PATIENT WITH EYES CLOSED AND RESPS ARE EVEN AND UNLABORED. TELE MONITOR IN PLACE. PUREWICK IN PLACE AND DRAINING CLEAR YELLOW URINE. SALINE LOCK TO LAC INTACT. CALL LIGHT IN REACH. WILL CONT TO MONITOR.
--- NOTE | 2023-07-03 21:18 | NUR ---
PATIENT AWAKE ALERT AND ORIENTEDX3. PATIENT GLUCOSE TONIGHT IS 106. PATIENT [id number] WITH LASIX 40MG IVP ORDERED VIA LEFT AC SITE. PUREWICK CONT TO DRAIN CLEAR YELLOW URINE. PATIENT WITH DRESSINGS TO BLE-CURRENTLY THEY ARE BEING DONE BY [facility] SUNDAY AND SUNDAY. PATIENT REFUSES TO HAVE THEM REMOVED AT THIS TIME. WILL CONSULT WITH [facility] FOR CURRENT TREATMENT TOMORROW. PATIENT WITH FOOT SWELLING AND WEAK PEDAL PULSES. PATIENT STATES THAT HE IS PROBABLY GOING BACK TO SNF HIS FAMILY IS NOT ABLE TO PROVIDE FOR HIS NEEDS AT THIS TIME. SAFETY PRECAUTIONS REINFORCED. CALL LIGHT IN REACH. WILL CONT TO MONITOR.
[2023-07-04] VITALS (8 sets, daily range): BP systolic 94–151; BP diastolic 49–72
--- NOTE | 2023-07-04 00:21 | NUR ---
RESTING IN BED AT THIS TIME WITH HOB ELEVATED. EYES ARE CLOSED AND RESPS ARE EVEN AND UNLABORED., TELE MONITOR IN PLACE. SALINE LOCK TO LAC IN PLACE. TELE MONITOR IN PLACE. CALL LIGHT IN REACH. WILL CONT TO MONITOR.
--- NOTE | 2023-07-04 04:40 | NUR ---
PATIENT RESTING IN BED AT THIS TIME WITH EYES CLOSED. RESP ARE UNLABORED AT THIS TIME. PUREWICK REMAINS IN PLACE AND DRAINED ANOTHER 1000CC OF CLEAR YELLOW URINE. TELE MONITOR IN PLACE. DRESSINGS TO B LE ARE INTACT. SALINE LOCK TO LEFT AC INTACT. CALL LIGHT IN REACH. WILL CONT TO MONITOR.
--- NOTE | 2023-07-04 05:27 | NUR ---
PATIENT SITTING UP ON SIDE OF THE BED. PATIENT MAX ASSIST TO STANDING SCALE WITH WEIGHT OF 159.0 KG. ASSISTED BACK TO BED, WEIGHT IS DOWN 3.4KG FROM ADMISSION. REMAINS SITTING UP ON THE SIDE OF THE BED. CALL LIGHT IN REACH. WILL CONT TO MONITOR.
--- NOTE | 2023-07-04 05:57 | NUR ---
IMPLANTED PORT IN LEFT CHEST WALL ACCESSED ON FIRST ATTEMPT WITH 1IN NON CORING NEEDLE USING STERILE TECHNIQUE, GOOD ASPIRATE OBTAINED, FLUSHED WITH 10CC NS AND STERILE DRESSING APPLIED, PT TOLERATED WELL. ATTENDING NURSE NOTIFIED, EMS SITE IN LEFT AC REMOVED PER PT REQUEST WITHOUT INCIDENT AND TIP INTACT.
--- NOTE | 2023-07-04 07:00 | NUR ---
PT RESTING IN SEMI FOWLERS POSITION. A/O RESPIRATIONS ON ROOM AIR. HX OF AFIB IRREGULAR RHYTHM PER HEART MONITOR. PORT SITE NOTED. PURE WICK NOTED. DRESSINGS TO LOWER EXTREMITIES NOTED. PT DENIES ADDITIONAL NEEDS AT THE TIME ALL SAFETY PRECAUTIONS IN PLACE WITH CALL LIGHT IN REACH .
[2023-07-04 08:02] LABS: HEMATOCRIT 40.4 % (39.0-50.0); HEMOGLOBIN 12.4 g/dl (14.0-18.0); MEAN CELL VOLUME 79.7 fL CALC (80.0-100.0); MEAN CORPUSCULAR HGB 24.5 pG CALC (26.0-32.0); MEAN CORPUSCULAR HGB CONC 30.7 g/dL CAL (32.0-36.0); RED BLOOD COUNT 5.07 mill/uL (4.70-6.10); RED CELL DISTRI WIDTH 16.7 % (11.5-15.5)
[2023-07-04 08:27] LABS: ALBUMIN 3.4 g/dL (3.2-5.0); CREATININE 1.6 mg/dL (0.7-1.3); TOTAL PROTEIN 6.5 g/dL (6.3-8.2)
[2023-07-04 08:28] LABS: POTASSIUM 3.1 mmol/l (3.5-5.1)
[2023-07-04] MEDS ORDERED: ATENOLOL50 MG PO (11:41)
--- NOTE | 2023-07-04 12:03 | NUR ---
PT DENIES ADDITIONAL NEEDS AT THE TIME ALL SAFETY PRECAUTIONS IN PLACE WITH CALL LIGHT IN REACH.
--- NOTE | 2023-07-04 22:35 | NUR ---
RECEIVED SHIFT REPORT AT START OF SHIFT. PT IS ALERT AND ORIENTED X 3. LYING IN BED WITH HOB ELEVATED. WATCHING TV. ON TELEMETRY. NO C/O OF DISCOMFORT. BED IS LOCKED. TOP RAIL UP. CALL LIGHT IN REACH.
[2023-07-05 00:56] VITALS: BP 94/51
[2023-07-05 04:00] VITALS: BP 122/68
[2023-07-05 05:55] LABS: BASO% 0.5 % (0-3); EOS% 5.9 % (0-8); HEMATOCRIT 40.6 % (39.0-50.0); HEMOGLOBIN 12.8 g/dl (14.0-18.0); IMMATURE GRANULOCYTES 0.1 % (0.0-5.0); LYMPH% 18.8 % (15-41); MEAN CELL VOLUME 79.5 fL CALC (80.0-100.0); MEAN CORPUSCULAR HGB CONC 31.5 g/dL CAL (32.0-36.0); MONO% 8.9 % (2-13); NEUT# 5.12 thou/uL (1.82-7.42); NEUT% 65.8 % (42-76); RED BLOOD COUNT 5.11 mill/uL (4.70-6.10); RED CELL DISTRI WIDTH 16.2 % (11.5-15.5)
[2023-07-05 06:03] LABS: ALBUMIN 3.4 g/dL (3.2-5.0); BILIRUBIN, TOTAL 1.1 mg/dL (0.2-1.3); CREATININE 1.6 mg/dL (0.7-1.3); MAGNESIUM 1.3 mg/dL (1.6-2.3); POTASSIUM 3.2 mmol/l (3.5-5.1); TOTAL PROTEIN 6.6 g/dL (6.3-8.2)
[2023-07-05 06:40] VITALS: BP 125/75
--- NOTE | 2023-07-05 08:00 | NUR ---
GOT REPORT FROM HAND CANDY DIPPER NURSE. PATIENT ASSESSED. PATIENT IS STABLE. NO COMPLAINTS AT THIS TIME. CALL LIGHT AND BED SIDE TABLE WITH IN REACH. ADVISED TO CALL IF NEEDING ANYTHING. PATIENT VERBALIZED
[2023-07-05 10:05] VITALS: BP 104/58
--- NOTE | 2023-07-05 12:00 | NUR ---
PATIENT SITING UP IN BED. NO COMPLAINTS OR NEEDS AT THIS TIME. CALL LIGHT AND BEDISDE TABLE WITH IN REACH. ADVISED TO CALL IF NEEDING ANYTHING.
[2023-07-05 14:18] VITALS: BP 120/66
[2023-07-05] MEDS ORDERED: TRAMADOL HYDROC50 M1 PO (15:39)
[2023-07-05] MEDS ORDERED: LYRICA150 MG PO (15:39)
[2023-07-05] MEDS ORDERED: LEVEMIR100 UNIT SC (15:41)
[2023-07-05] MEDS ORDERED: TRAMADOL HCL50 MG PO (15:50)
[2023-07-05] MEDS ORDERED: LYRICA75 MG PO (15:50)
--- NOTE | 2023-07-05 18:34 | NUR ---
Discharge instructions given. Patient verbalizes understanding of same. Discharged in stable condition via Medical Transport to *Other with *Other. All belongings sent with pt.
== END 2023-07-05 18:34 ==
LOC: ED 08:36 → ED-I 09:39 → ED 09:39 → MS2 09:57
PROVIDERS: Family Medicine; Nurse Practitioner Family; ADMIT Student in an Organized Health Care Education/Training Program; ATTEND Student in an Organized Health Care Education/Training Program
PROC: 5A09357 Assistance with Respiratory Ventilation, Less than 24 Consecutive Hours, Continuous Positive Airway Pressure (ICD-10-PCS; principal; 2023-07-04)
DX: I13.0 Hypertensive heart and chronic kidney disease with heart failure and stage 1 through stage 4 chronic kidney disease, or unspecified chronic kidney disease (principal); I50.23 Acute on chronic systolic (congestive) heart failure; E11.22 Type 2 diabetes mellitus with diabetic chronic kidney disease; N18.2 Chronic kidney disease, stage 2 (mild); E11.40 Type 2 diabetes mellitus with diabetic neuropathy, unspecified; E83.42 Hypomagnesemia; J44.9 Chronic obstructive pulmonary disease, unspecified; E87.6 Hypokalemia; I48.19 Other persistent atrial fibrillation; I25.10 Atherosclerotic heart disease of native coronary artery without angina pectoris; E11.69 Type 2 diabetes mellitus with other specified complication; E78.5 Hyperlipidemia, unspecified; G47.33 Obstructive sleep apnea (adult) (pediatric); K21.9 Gastro-esophageal reflux disease without esophagitis; M19.90 Unspecified osteoarthritis, unspecified site; E66.01 Morbid (severe) obesity due to excess calories; Z98.84 Bariatric surgery status; Z79.4 Long term (current) use of insulin; Z86.73 Personal history of transient ischemic attack (TIA), and cerebral infarction without residual deficits; Z20.822 Contact with and (suspected) exposure to COVID-19; Z68.43 Body mass index [BMI] 50.0-59.9, adult; Z95.818 Presence of other cardiac implants and grafts
CPT/HCPCS: J3475